=== PATIENT | male | born 1945 | race African-American/Black ===

== ENCOUNTER 2018-03-13 14:08 | Inpatient (IN) | payer MEDICARE, MEDICAID ==
[2018-03-13] MEDS ORDERED: Multivitamins, Adult 10 ML, Thiamine HCl 100 MG, Folic Acid 1 MG in Dextrose 5 %-0.45 %... IV SCH (14:45)
[2018-03-13 14:57] LABS: Troponin I 0.022 ng/mL (< 0.028)
[2018-03-13] MEDS ORDERED: Ondansetron ODT 4 MG TAB SL PRN (16:47)
[2018-03-13] MEDS ORDERED: Ondansetron HCl/PF 4 MG/2 ML Vial IVP PRN ×2 (16:47→17:13)
[2018-03-13] MEDS ORDERED: Acetaminophen 325 MG TAB PO PRN (17:13)
[2018-03-13] MEDS ORDERED: Ondansetron ODT 4 MG TAB PO PRN (17:13)
[2018-03-13] MEDS ORDERED: Enoxaparin Sodium 40 MG/0.4 ML SYRINGE SC SCH (17:13)
[2018-03-13] MEDS ORDERED: HYDROcodone/Acetaminophen 5/325 mg Tablet PO PRN ×2 (17:13)
[2018-03-13] MEDS ORDERED: Acetaminophen 650 MG Suppository PR PRN (17:13)
[2018-03-13] MEDS ORDERED: Diazepam 5 MG TAB PO PRN (17:51)
[2018-03-13] MEDS ORDERED: Diazepam 5 MG TAB PO SCH (18:00)
[2018-03-13] MEDS: Sodium Chloride 0.9% 1,000 ML IV SCH ×2 (18:09→23:58)
[2018-03-13] MEDS ORDERED: Sodium Chloride 0.9% 10 ML ONE (20:03)
[2018-03-13] MEDS: Labetalol 100 MG TAB PO SCH (21:15)
[2018-03-13] MEDS: Famotidine 20 MG TAB PO SCH (21:15)
[2018-03-13] MEDS: hydrALAZINE 25 MG TAB PO SCH (21:16)
[2018-03-14] MEDS: Sodium Chloride 0.9% 1,000 ML IV SCH ×3 (04:45→22:35)
[2018-03-14] MEDS ORDERED: cloNIDine 0.1 MG TAB PO SCH ×2 (04:45→23:45)
[2018-03-14] MEDS: Amlodipine 10 MG TAB PO SCH (08:28)
[2018-03-14] MEDS: Aspirin 325 MG TAB PO SCH (08:29)
[2018-03-14] MEDS: Enoxaparin Sodium 40 MG/0.4 ML SYRINGE SC SCH (08:29)
[2018-03-14] MEDS: hydrALAZINE 25 MG TAB PO SCH ×2 (08:30→20:30)
[2018-03-14] MEDS: Labetalol 100 MG TAB PO SCH ×3 (08:30→20:31)
[2018-03-14] MEDS: Famotidine 20 MG TAB PO SCH ×2 (08:30→20:32)
[2018-03-14] MEDS: Magnesium Oxide 400 MG TAB PO SCH (08:31)
[2018-03-14] MEDS: Multivitamins, Adult 10 ML, Folic Acid 1 MG, Thiamine HCl 100 MG in Dextrose 5 %-0.45 %... IV SCH (15:14)
[2018-03-14] MEDS: Diazepam 5 MG TAB PO PRN (20:31)
[2018-03-15] MEDS: Diazepam 5 MG TAB PO PRN (00:30)
[2018-03-15 05:29] LABS: #Eosinphils 0.1 thou/uL (0.0-0.7); #Lymphocytes 1.5 thou/uL (1.20-3.40); #Monocytes 0.3 thou/uL (0.11-0.59); #Neutrophils 2.3 thou/uL (1.40-6.50); %Basophils 1.1 % (0.0-1.0); %Eosinophils 2.2 % (0.0-10.0); %Lymphocytes 36.6 % (21.0-51.0); %Monocytes 6.4 % (0.0-10.0); %Neutrophils 53.6 % (42.0-75.0); Hemoglobin 13.9 g/dL (14.0-18.0); Mean Corpuscular HGB CONC 33.3 g/dL (32.0-36.0); Mean Corpuscular Hemoglobin 31.2 pg (27.0-31.0); Mean Corpuscular Volume 93.6 fL (78.0-98.0); Platelet Count 206 thou/uL (130-400); RBC Distribution Width 11.8 % (11.5-14.5); Red Blood Cell (RBC) Count 4.45 mill/uL (4.70-6.10); White Blood Cell (WBC) Count 4.2 thou/uL (4.8-10.8)
[2018-03-15 05:45] LABS: Anion Gap 11 mmol/L (10-20); BUN (Urea Nitrogen) 13 mg/dL (8.4-25.7); CK (CPK) 339 U/L (30-200); Calc. Creatinine Clearance 68 mL/min (70-130); Calcium 9.1 mg/dL (7.8-10.44); Carbon Dioxide 24 mmol/L (23-31); Chloride 110 mmol/L (98-107); Estimated GFR-MDRD Greater than 90; Glucose 93 mg/dL (83-110); Magnesium 2.1 mg/dL (1.6-2.6); Potassium 3.8 mmol/L (3.5-5.1); Sodium 141 mmol/L (136-145)
[2018-03-15] MEDS: Amlodipine 10 MG TAB PO SCH (08:28)
[2018-03-15] MEDS: Famotidine 20 MG TAB PO SCH ×2 (08:28→20:55)
[2018-03-15] MEDS: Labetalol 100 MG TAB PO SCH ×3 (08:28→20:55)
[2018-03-15] MEDS: hydrALAZINE 25 MG TAB PO SCH ×2 (08:29→20:55)
[2018-03-15] MEDS: Magnesium Oxide 400 MG TAB PO SCH (08:29)
[2018-03-15] MEDS: Enoxaparin Sodium 40 MG/0.4 ML SYRINGE SC SCH (08:30)
[2018-03-15] MEDS: Aspirin 325 MG TAB PO SCH (08:30)
[2018-03-15] MEDS: Sodium Chloride 0.9% 1,000 ML IV SCH (08:30)
--- NOTE | 2018-03-15 11:58 | PDOC.PN ---
- Subjective Encounter Start Date: 03/14/18 Encounter Start Time: 14:40 Pt more awake and coherent, denies CP or SOb, no N/V/D/C, no CP or SOB. refusing meds except pepcid, requesgting BID No other complaints or events, ASE has been zero all systems reviewed and neg x as above - Objective Resuscitation Status: Resuscitation Status FULL:Full Resuscitation MAR Reviewed: Yes Vital Signs & Weight: Vital Signs (12 hours) Temp Pulse Resp BP BP BP Pulse Ox 03/15/18 11:32 97.8 F 60 14 180/86 H 97 03/15/18 10:32 176/84 H 03/15/18 09:21 180/83 H 03/15/18 08:29 64 240/106 H 03/15/18 08:28 57 L 240/106 H 03/15/18 08:25 64 18 223/95 H 223/95 H 93 L 03/15/18 08:06 97.5 F L 57 L 16 240/106 H 90 L 03/15/18 06:46 176/82 H 03/15/18 06:34 98 F 03/15/18 04:00 53 L 16 176/82 H 96 03/15/18 01:25 65 16 168/84 H 03/15/18 00:00 191/92 H Weight Weight 146 lb 9.6 oz I&O: 03/14/18 03/15/18 03/16/18 06:59 06:59 06:59 Intake Total 2082 2738 Output Total 350 480 Balance 1732 2258 Result Diagrams: 03/15/18 05:15 03/15/18 05:15 Phys Exam - Physical Examination Constitutional: NAD HEENT: PERRLA, moist MMs, sclera anicteric, oral pharynx no lesions Neck: no nodes, no JVD, supple, full ROM Respiratory: no wheezing, clear to auscultation bilateral Cardiovascular: RRR, no rub Gastrointestinal: soft, non-tender, no distention, positive bowel sounds Musculoskeletal: edema present Neurological: non-focal, normal sensation, moves all 4 limbs Lymphatic: no nodes Psychiatric: normal affect Deviation from normal: alert, awake, oriented to person, place, year Skin: no rash, normal turgor, cap refill <2 seconds Dx/Plan (1) Acute metabolic encephalopathy Code(s): G93.41 - METABOLIC ENCEPHALOPATHY Status: Resolved Comment: pt possibly at baseline (2) Nonadherence to medical treatment Code(s): Z91.19 - PATIENT'S NONCOMPLIANCE W OTH MEDICAL TREATMENT AND REGIMEN Status: Chronic (3) Alcohol abuse Code(s): F10.10 - ALCOHOL ABUSE, UNCOMPLICATED Status: Chronic (4) Cocaine abuse Code(s): F14.10 - COCAINE ABUSE, UNCOMPLICATED Status: Chronic (5) Hypertensive urgency Code(s): I16.0 - HYPERTENSIVE URGENCY Status: Acute - Plan cont current plan of care, plan discussed w/ family, PT/OT, [employer]p [employer] and crm * . monitor for signs of withdrawl
--- NOTE | 2018-03-15 15:06 | HP ---
DATE OF ADMISSION: 03/13/2018 PRIMARY CARE PHYSICIAN: Catarina Díaz NP. TIME OF SERVICE: 1530. CHIEF COMPLAINT: Altered mental status. HISTORY OF PRESENT ILLNESS: Mr. Quiñones is a 72-year-old male with history of cocaine and alcohol abuse ongoing, hyperlipidemia, hypertension, and medical nonadherence. The patient lives in [place], [place]. He is normally intoxicated and walks around town on a regul ar basis. He . Sometimes not clothed very much at all. He normally stops by a particular laun dromat and comes in for a drink and was out for a walk on 03/13, the day of admission, and the people at work did noticed that he did not come in. They went inside to check on him and noticed he was luis n to the ground, minimally responsive, so EMS was called. He was soaked with urine and they were con cerned that he may have had a seizure. He was taken to the [facility] and transferred to our facility. On arrival here, workup was largely unremarkable. Alcohol level was detectable at , which has b christelle called for admission. Blood pressure elevated. On my arrival, his niece and brother were in the room. They said that the mental status currently is pretty standard for this patient. He often soi ls himself with urine or feces and is pretty much oblivious to everything going on around him. The patient states he has not had a drink in several days. He said that he has not used cocaine in a couple of weeks as he has not had the money. No chest pain or difficulty breathing. No nausea or v omiting. PAST MEDICAL HISTORY: 1. Hypertension. 2. Hyperlipidemia. 3. Polysubstance abuse with alcohol and cocaine. 4. Medical nonadherence. PAST SURGICAL HISTORY: Left eye cataract replacement, low back surgery remotely some 30 years ago. HOME MEDICATIONS: 1. Vitamin B12. 2. Labetalol. 3. Hydralazine. 4. Aspirin 325 mg. 5. Folic acid. 6. Amlodipine. 7. Lovastatin. His family does not think he is taking any of these medications. ALLERGIES: No known drug allergies. FAMILY HISTORY: Negative for clotting or bleeding disorder. No immune dysfunction. SOCIAL HISTORY: He lives alone. Obviously, he did not take care of himself. His son, Dany, who was in [place], his number is [phone]. The next of kin is his brother. He was seen at the scene and his brother's daughter/patient's niece, Ms. Falcon and her number is [phone]. REVIEW OF SYSTEMS: Performed and negative for all systems except as stated as per above. PHYSICAL EXAMINATION: VITAL SIGNS: Temperature current 98.5, pulse 57, blood pressure 186/84, respiratory rate 14, O2 satu ration 96% on room air. GENERAL: He is awake. He is alert. He is oriented to person and place. He is in no acute distress . He is a very disheveled looking male, who appears older than his stated age. HEENT: Normocephalic, atraumatic. Pupils equal, round and reactive to light bilaterally. Mucous me mbranes are moist. He has a left eye pseudophakia. NECK: Supple. There is no lymphadenopathy, JVD, or thyromegaly. He has normal carotid upstroke. I do not appreciate a bruit. LUNGS: Clear to auscultation anteriorly, but posteriorly, he has some bibasilar crackles that are ve ry fine, did not clear with deep inspiration. CARDIOVASCULAR: He has normal cardiac to slightly bradycardic. He has normal S1, S2. He has a 2/6 systolic ejection murmur in the left upper sternal border. ABDOMEN: Soft, it is scaphoid, it is nontender, nondistended, no mass or organomegaly. EXTREMITIES: No cyanosis or clubbing. Trace pedal edema. SKIN: Dry. He has no rashes or lesions noted. MUSCULOSKELETAL: Normal to inspection. Large joints appear normal. There is no evidence of inflamm ation or palpable effusion. NEUROLOGIC: Cranial nerves II through XII grossly intact. He has no tremors. He follows commands a nd is moving all 4 extremities, has no focal deficits. Speech is somewhat garbled and slurred, but t his is apparently is normal. LABORATORY DATA: Labs done at facility show white blood cell count of 5.1, hemoglobin 13.5, hematocr it of 40.4, platelet count is 208,000. Chemistries showed a CMP that was within normal limits. Crea tinine was 1.13. Sodium 143, potassium 3.9, chloride 110, bicarbonate 23, calcium 9.4. Liver functi on is normal. CK was slightly elevated at 490. Troponin I was 0.022. Ammonia level was normal at 3 6. Urinalysis showed 2+ bacteria, but 4-6 epithelial cells, no white cells and negative for nitrite and tox showed a plasma alcohol less than 10. Tylenol that was undetectable and salicylate that were negative. Alcohol level reported to me initialy being positive, being very undetectable. I cannot locate. The only level we have was at [facility], and it was undetectable. RADIOGRAPHIC STUDIES: He had CT scan of the brain that showed no acute intracranial abnormalities. Chest x-ray was unremarkable. ASSESSMENT AND PLAN: 1. Metabolic encephalopathy: The patient had some sort of events. He is negative for drugs and alc ohol at this time. Certainly could have been a seizure, but apparently the patient is normally incon tinent. We will place him on observation, we will watch him on telemetry with seizure precautions. We will initiate the ASE protocol. 2. Hypertension, uncontrolled. We will restart the medicines he is supposed to be on, amlodip ine, hydralazine, labetalol. We will titrate these as needed. 3. Polysubstance abuse. The patient is negative for alcohol, negative for cocaine or any other symp toms for that matter. We will watch him for signs of withdrawal. 4. Patient is very disheveled looking and apparently does not take care of himself, likely need to g et EPS involved.
[2018-03-15] MEDS: Multivitamins, Adult 10 ML, Folic Acid 1 MG, Thiamine HCl 100 MG in Dextrose 5 %-0.45 %... IV SCH (15:43)
--- NOTE | 2018-03-15 15:43 | PDOC.PN ---
- Subjective Encounter Start Date: 03/15/18 Encounter Start Time: 15:30 Patient says he feels fine. Feels like he is at his baseline. Does not feel shaky. - Objective Resuscitation Status: Resuscitation Status FULL:Full Resuscitation Vital Signs & Weight: Vital Signs (12 hours) Temp Pulse Pulse Pulse Resp BP BP 03/15/18 15:39 98 F 67 18 03/15/18 12:14 180/86 H 03/15/18 11:32 97.8 F 60 14 180/86 H 03/15/18 10:32 176/84 H 03/15/18 10:22 63 67 174/84 H 03/15/18 09:21 180/83 H 03/15/18 08:29 64 240/106 H 03/15/18 08:28 57 L 240/106 H 03/15/18 08:25 64 18 223/95 H 03/15/18 08:06 97.5 F L 57 L 16 240/106 H 03/15/18 06:46 176/82 H 03/15/18 06:34 98 F 03/15/18 04:00 53 L 16 BP BP Pulse Ox 03/15/18 15:39 185/87 H 97 03/15/18 12:14 03/15/18 11:32 97 03/15/18 10:32 03/15/18 10:22 176/84 H 03/15/18 09:21 03/15/18 08:29 03/15/18 08:28 03/15/18 08:25 223/95 H 93 L 03/15/18 08:06 90 L 03/15/18 06:46 03/15/18 06:34 03/15/18 04:00 176/82 H 96 Weight Weight 146 lb 9.6 oz I&O: 03/14/18 03/15/18 03/16/18 06:59 06:59 06:59 Intake Total 1332 2738 Output Total 350 480 Balance 1732 2258 Result Diagrams: 03/15/18 05:15 03/15/18 05:15 Phys Exam - Physical Examination Constitutional: NAD Respiratory: no wheezing, no rales, no rhonchi Cardiovascular: RRR, no significant murmur Gastrointestinal: soft, non-tender, no distention, positive bowel sounds Musculoskeletal: no edema Psychiatric: normal affect Deviation from normal: Not oriented. Believes he is in [place]. Dx/Plan (1) Nonadherence to medical treatment Code(s): Z91.19 - PATIENT'S NONCOMPLIANCE W OTH MEDICAL TREATMENT AND REGIMEN Status: Chronic (2) Acute metabolic encephalopathy Code(s): G93.41 - METABOLIC ENCEPHALOPATHY Status: Resolved Comment: pt possibly at baseline (3) Hypertensive urgency Code(s): I16.0 - HYPERTENSIVE URGENCY Status: Acute Comment: Imporved on several meds. Says he takes meds at home, but does not know what they are. (4) Alcohol abuse Code(s): F10.10 - ALCOHOL ABUSE, UNCOMPLICATED Status: Chronic (5) Cocaine abuse Code(s): F14.10 - COCAINE ABUSE, UNCOMPLICATED Status: Chronic (6) Altered mental status Code(s): R41.82 - ALTERED MENTAL STATUS, UNSPECIFIED Status: Resolved Comment: sec to substance alc abuse, adv age and htn urgency - Plan * Completely unclear what the patient's baseline mental status is. He looks tremulous and is not oriented. Will attempt to get some insight on his baseline from his brother. He may be disoriented at baseline given his history of substance abuse. Continue ASE protocol.
[2018-03-16] MEDS ORDERED: hydrALAZINE 20 MG/ML VIAL SLOW IVP PRN (00:28)
[2018-03-16] MEDS: Sodium Chloride 0.9% 1,000 ML IV SCH ×3 (03:03→16:37)
[2018-03-16] MEDS: Famotidine 20 MG TAB PO SCH ×2 (08:04→19:42)
[2018-03-16] MEDS: Aspirin 325 MG TAB PO SCH (08:04)
[2018-03-16] MEDS: Enoxaparin Sodium 40 MG/0.4 ML SYRINGE SC SCH (08:04)
[2018-03-16] MEDS: Labetalol 100 MG TAB PO SCH ×3 (08:04→19:42)
[2018-03-16] MEDS: Amlodipine 10 MG TAB PO SCH (08:04)
[2018-03-16] MEDS: hydrALAZINE 25 MG TAB PO SCH ×2 (08:05→19:42)
[2018-03-16] MEDS: Magnesium Oxide 400 MG TAB PO SCH (08:05)
--- NOTE | 2018-03-16 15:09 | PDOC.PN ---
- Subjective Encounter Start Date: 03/16/18 Encounter Start Time: 11:10 Says he feels ok. No complaints. - Objective Resuscitation Status: Resuscitation Status FULL:Full Resuscitation Vital Signs & Weight: Vital Signs (12 hours) Temp Pulse Resp BP BP Pulse Ox 03/16/18 12:00 97.6 F 67 18 155/73 H 155/73 H 95 03/16/18 08:05 73 03/16/18 08:04 73 200/91 H 03/16/18 08:00 96 03/16/18 07:33 98.8 F 73 18 200/91 H 200/91 H 96 03/16/18 04:00 179/96 H 03/16/18 03:30 98.4 F 90 18 179/96 H 97 Weight Weight 148 lb I&O: 03/15/18 03/16/18 03/17/18 06:59 06:59 06:59 Intake Total 2738 3100 Output Total 480 Balance 2258 3100 Result Diagrams: 03/15/18 05:15 03/15/18 05:15 Phys Exam - Physical Examination Constitutional: NAD Respiratory: no wheezing, no rales, no rhonchi, clear to auscultation bilateral Cardiovascular: RRR, no significant murmur Gastrointestinal: soft, non-tender, no distention, positive bowel sounds Musculoskeletal: no edema Disoriented to place and year. Dx/Plan (1) Nonadherence to medical treatment Code(s): Z91.19 - PATIENT'S NONCOMPLIANCE W OTH MEDICAL TREATMENT AND REGIMEN Status: Chronic (2) Acute metabolic encephalopathy Code(s): G93.41 - METABOLIC ENCEPHALOPATHY Status: Resolved Comment: Likely related to withdrawal or chronic brain injury secondary to substance abuse. Baseline is not clearly known. (3) Hypertensive urgency Code(s): I16.0 - HYPERTENSIVE URGENCY Status: Acute Comment: Imporved on several meds. Says he takes meds at home, but does not know what they are. (4) Alcohol abuse Code(s): F10.10 - ALCOHOL ABUSE, UNCOMPLICATED Status: Chronic (5) Cocaine abuse Code(s): F14.10 - COCAINE ABUSE, UNCOMPLICATED Status: Chronic (6) Altered mental status Code(s): R41.82 - ALTERED MENTAL STATUS, UNSPECIFIED Status: Resolved Comment: sec to substance alc abuse, adv age and htn urgency - Plan * Discussed with Pat, patient's son. He is here from [place]. Discussed the issues with substance abuse and withdrawal. May have some underlying dementia as well. At this point we need to wean off any benzodiazepines over the next day. He will need placement upon discharge. Anticipate a discharge day of .
[2018-03-16] MEDS: Multivitamins, Adult 10 ML, Folic Acid 1 MG, Thiamine HCl 100 MG in Dextrose 5 %-0.45 %... IV SCH (16:37)
[2018-03-17] MEDS: Sodium Chloride 0.9% 1,000 ML IV SCH ×2 (00:54→08:37)
[2018-03-17] MEDS: Famotidine 20 MG TAB PO SCH ×2 (08:34→19:31)
[2018-03-17] MEDS: Aspirin 325 MG TAB PO SCH (08:34)
[2018-03-17] MEDS: Enoxaparin Sodium 40 MG/0.4 ML SYRINGE SC SCH (08:34)
[2018-03-17] MEDS: Amlodipine 10 MG TAB PO SCH (08:34)
[2018-03-17] MEDS: Labetalol 100 MG TAB PO SCH ×3 (08:35→19:32)
[2018-03-17] MEDS: hydrALAZINE 25 MG TAB PO SCH ×2 (08:35→19:32)
[2018-03-17] MEDS: Magnesium Oxide 400 MG TAB PO SCH (08:36)
--- NOTE | 2018-03-17 12:03 | PDOC.PN ---
- Subjective Encounter Start Date: 03/17/18 Encounter Start Time: 10:55 Doing well. Got up to shower this morning and did well. Denies complaints. - Objective Resuscitation Status: Resuscitation Status FULL:Full Resuscitation Vital Signs & Weight: Vital Signs (12 hours) Temp Pulse Resp BP BP Pulse Ox 03/17/18 11:14 98 F 77 16 138/65 93 L 03/17/18 08:30 98.3 F 81 18 181/89 H 181/89 H 94 L 03/17/18 04:02 171/88 H 03/17/18 04:00 98.7 F 77 12 171/84 H 95 03/17/18 00:06 158/75 H Weight Weight 160 lb 12.8 oz I&O: 03/16/18 03/17/18 03/18/18 06:59 06:59 06:59 Intake Total 3100 3470 Balance 3100 3470 Result Diagrams: 03/15/18 05:15 03/15/18 05:15 Phys Exam - Physical Examination Constitutional: NAD Respiratory: no wheezing, no rales, no rhonchi, clear to auscultation bilateral Cardiovascular: RRR, no significant murmur Gastrointestinal: soft, non-tender, no distention, positive bowel sounds Musculoskeletal: no edema Deviation from normal: Still confused. A little sleepy. Dx/Plan (1) Nonadherence to medical treatment Code(s): Z91.19 - PATIENT'S NONCOMPLIANCE W OTH MEDICAL TREATMENT AND REGIMEN Status: Chronic (2) Acute metabolic encephalopathy Code(s): G93.41 - METABOLIC ENCEPHALOPATHY Status: Resolved Comment: Likely related to withdrawal or chronic brain injury secondary to substance abuse. Baseline is not clearly known. Suspect he is at his baseline with mild to moderate dementia. (3) Hypertensive urgency Code(s): I16.0 - HYPERTENSIVE URGENCY Status: Acute Comment: Imporved on several meds. (4) Alcohol abuse Code(s): F10.10 - ALCOHOL ABUSE, UNCOMPLICATED Status: Chronic (5) Cocaine abuse Code(s): F14.10 - COCAINE ABUSE, UNCOMPLICATED Status: Chronic (6) Altered mental status Code(s): R41.82 - ALTERED MENTAL STATUS, UNSPECIFIED Status: Resolved Comment: sec to substance alc abuse, adv age and htn urgency. This is likely his baseline. - Plan * Stopping the Diazepam. Does not look like he has been getting much of it. If ok without it, can discharge tomorrow. Working on placement.
[2018-03-17] MEDS: Multivitamins, Adult 10 ML, Folic Acid 1 MG, Thiamine HCl 100 MG in Dextrose 5 %-0.45 %... IV SCH (15:20)
--- NOTE | 2018-03-17 17:19 | CT ---
CT BRAIN WITHOUT CONTRAST 03/17/18 HISTORY: Fall. Patient on blood thinners. FINDINGS: Comparison made with exam of 03/13/18. 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 No evidence of acute infarct, hemorrhage, midline shift or abnorm al extra-axial fluid collections are seen. The ventricular size is stable and the basilar cisterns ar e patent. The bony calvarium is intact. The visualized paranasal sinuses and mastoid air cells are we ll aerated. Lipoma in the left frontal scalp is again seen. IMPRESSION: No CT evidence of intracranial process. Report was called over the telephone to Dr. Jake Hargrove at 4:54 p.m. POS: [facility]
[2018-03-17] MEDS ORDERED: Diazepam 5 MG TAB PO PRN (22:43)
[2018-03-18] MEDS: Sodium Chloride 0.9% 1,000 ML IV SCH ×3 (00:04→20:42)
[2018-03-18 05:58] LABS: #Eosinphils 0.1 thou/uL (0.0-0.7); #Monocytes 0.6 thou/uL (0.11-0.59); #Neutrophils 4.7 thou/uL (1.40-6.50); %Basophils 0.4 % (0.0-1.0); %Eosinophils 1.9 % (0.0-10.0); %Lymphocytes 15.9 % (21.0-51.0); %Monocytes 9.5 % (0.0-10.0); %Neutrophils 72.3 % (42.0-75.0); Hemoglobin 13.3 g/dL (14.0-18.0); Mean Corpuscular HGB CONC 33.4 g/dL (32.0-36.0); Mean Corpuscular Hemoglobin 30.9 pg (27.0-31.0); Mean Corpuscular Volume 92.4 fL (78.0-98.0); Mean Platelet Volume 8.4 fL (7.4-10.4); Platelet Count 195 thou/uL (130-400); Red Blood Cell (RBC) Count 4.32 mill/uL (4.70-6.10); White Blood Cell (WBC) Count 6.5 thou/uL (4.8-10.8)
[2018-03-18 06:24] LABS: Anion Gap 14 mmol/L (10-20); BUN (Urea Nitrogen) 39 mg/dL (8.4-25.7); Calc. Creatinine Clearance 12 mL/min (70-130); Calcium 8.6 mg/dL (7.8-10.44); Carbon Dioxide 17 mmol/L (23-31); Chloride 109 mmol/L (98-107); Estimated GFR-MDRD 11; Glucose 101 mg/dL (83-110); Potassium 4.1 mmol/L (3.5-5.1); Sodium 136 mmol/L (136-145)
[2018-03-18] MEDS: Amlodipine 10 MG TAB PO SCH (08:30)
[2018-03-18] MEDS: hydrALAZINE 25 MG TAB PO SCH ×2 (08:31→20:41)
[2018-03-18] MEDS: Famotidine 20 MG TAB PO SCH (08:31)
[2018-03-18] MEDS: Aspirin 325 MG TAB PO SCH (08:31)
[2018-03-18] MEDS: Enoxaparin Sodium 40 MG/0.4 ML SYRINGE SC SCH (08:31)
[2018-03-18] MEDS: Labetalol 100 MG TAB PO SCH ×3 (08:32→20:41)
[2018-03-18] MEDS: Magnesium Oxide 400 MG TAB PO SCH (08:33)
--- NOTE | 2018-03-18 12:08 | PRG ---
DATE OF SERVICE: 03/18/2018 SUBJECTIVE: The patient still says he feels okay. Denies complaint. OBJECTIVE: VITAL SIGNS: Temperature 97.3, pulse 67, BP 174/86, O2 sat 92% on room air. GENERAL APPEARANCE: The patient is a bit sleepy, awakens easily, still confused and a little encepha lopathic in appearance. HEART: Regular without murmurs. LUNGS: Clear bilaterally. ABDOMEN: Soft, nontender, nondistended. EXTREMITIES: Warm and dry. LABORATORY DATA: White count 6.5, hemoglobin 13.3, platelets 195,000. Sodium 136, potassium 4.1, ch loride 109, CO2 17, BUN is 39, creatinine 5.92. Updated hospital course from yesterday, the patient had an episode where he got out of bed yesterday and fell. He had a code green called. He was immediately assessed and appeared to be stable. Denie d any pain or problems. He had a followup CT scan of the brain, which was negative. The patient aditi arently was not having any voiding overnight and has a history of incontinence, using some diapers an d his ins and outs cannot be easily tracked. I did a bladder scan this morning and found he had over 1000 mL in the bladder. Had a Burt catheter placed. Labs this morning obviously indicate worsenin g renal function. IMPRESSION AND PLAN: 1. Metabolic encephalopathy. The patient initially presented with altered mental status. He has a history of alcoholism and drug abuse. It is unclear how much of that was a factor initially. At thi s point, concerning for possible mild uremia as well. His overall mental status has not significantl y changed since he has been here. 2. Acute renal failure. The patient was voiding, but was incontinent with a diaper. It is unclear what his ins and outs have been. However, this morning he had evidence of urine retention and a Fole y catheter placed with about 1500 mL of urine output at that time. His creatinine has remarkably jum ped just a few days since his last labs. I suspect he has some obstructive uropathy. We will leave the Burt catheter in and consult Nephrology. 3. History of alcoholism. The patient initially had some p.r.n. benzodiazepines, but did not requir e much and those have been fully discontinued at this point. 4. Hypertensive urgency, improved, still hypertensive. We will await Nephrology's input on that as well. 5. History of cocaine abuse. 6. Likely baseline dementia, although incapable of confirming because of the patient's acute metabol ic encephalopathy. 7. History of noncompliance with medical treatment regimen.
[2018-03-18] MEDS: Multivitamins, Adult 10 ML, Folic Acid 1 MG, Thiamine HCl 100 MG in Dextrose 5 %-0.45 %... IV SCH (15:09)
--- NOTE | 2018-03-18 17:58 | ULT ---
BILATERAL RENAL SONOGRAM: Date: 03/18/18 HISTORY: Chronic kidney disease. FINDINGS: Right kidney measures 11.2 cm x 5.6 cm. Left kidney measures 11.9 cm x 5.8 cm. There is an anechoic circumscribed cystic lesion seen within the medial aspect mid portion of the rig ht kidney demonstrating sonographic characteristics most compatible with a cyst, measuring 1.9 cm in maximal dimensions There is mild nonspecific fullness of the right renal pelvis without overt hydrone phrosis. The left kidney demonstrates a normal sonographic appearance without evidence of a renal mass, renal calculus, or hydronephrosis. Burt catheter is present in the urinary bladder, which is decompressed. However, valdivia of the urinar y bladder are predominantly thickened and more thickened than expected for decompressed nature of the urinary bladder. Valdivia measure up to 1.7 cm in thickness. Incidental note is made of a small right pleural effusion. IMPRESSION: 1. Thickened urinary bladder valdivia, which may be related to either cystitis or possibly chronic blad autumn outlet obstruction. Clinical correlation is recommended. 2. Right renal cyst. 3. No evidence of hydronephrosis or renal cortical thinning bilaterally. 4. Small left pleural effusion. POS: [facility]
--- NOTE | 2018-03-18 19:43 | CON ---
DATE OF CONSULTATION: 03/18/2018 REASON FOR CONSULTATION: Elevated creatinine. HISTORY OF PRESENT ILLNESS: This is a very pleasant 72-year-old gentleman who presented to the [facility] for altered mental status. The patient has a history of cocaine and alcohol abuse. The patient lives in [place] can give no further history. The patient had a creatinine of 0.91 on 03/15/2018 , increased to 5.92 today. The patient did have episodes of acute kidney injury in the past. PAST MEDICAL HISTORY: 1. Hypertension. 2. Hyperlipidemia. 3. Polysubstance abuse. 4. Cataract surgery. REVIEW OF SYSTEMS: Unobtainable. HOSPITAL MEDICATIONS: List reviewed. HOME MEDICATIONS: List reviewed. PHYSICAL EXAMINATION: GENERAL: Patient is resting, in no acute distress. VITAL SIGNS: Afebrile, pulse 72, breathing 16, blood pressure 130/62. GENERAL APPEARANCE AND MENTAL STATUS: Fair. HEAD/NECK: Normocephalic. Atraumatic. EYES: EOMI. No deformity. EARS: Clear. No ulcers. NOSE: Intact. No lesions. MOUTH: Clear. No discharge. THROAT: Clear. No exudate. LUNGS: Clear. No crackles. CARDIAC: S1, S2. No rub. ABDOMEN: Benign. BS+. GENITALIA/RECTUM: Burt absent. BACK/EXTREMITIES: Edema 0+ Ulcer- NEUROLOGICAL: The patient is resting. SKIN: Rash- Bruise- LYMPHATICS: Edema- Ulcer- LABORATORY: Potassium 4.1, creatinine 5.9. ASSESSMENT AND RECOMMENDATIONS: 1. Acute kidney injury, most likely because of acute tubular necrosis. No urgent indication for elida lysis. 2. Hypertension, stable. 3. Anemia, stable. 4. Medication based on glomerular filtration rate are appropriate. No indication for dialysis.
[2018-03-19 07:12] LABS: Anion Gap 10 mmol/L (10-20); BUN (Urea Nitrogen) 19 mg/dL (8.4-25.7); Calc. Creatinine Clearance 46 mL/min (70-130); Calcium 8.7 mg/dL (7.8-10.44); Carbon Dioxide 22 mmol/L (23-31); Chloride 112 mmol/L (98-107); Estimated GFR-MDRD 55; Glucose 90 mg/dL (83-110); Potassium 3.6 mmol/L (3.5-5.1); Sodium 140 mmol/L (136-145)
[2018-03-19] MEDS ORDERED: Senokot 8.6 MG TAB PO PRN (07:24)
[2018-03-19] MEDS ORDERED: Loratadine 10 MG TAB PO PRN (07:24)
[2018-03-19] MEDS ORDERED: Eucerin (Mineral Oil/Petrolatum,White) 30 gm Jar TOP PRN (07:24)
[2018-03-19] MEDS ORDERED: Calcium Carbonate 500 MG ChewTAB PO PRN (07:24)
[2018-03-19] MEDS ORDERED: Chloraseptic Spray 180 ml Bottle PO PRN (07:24)
[2018-03-19] MEDS ORDERED: Milk Of Magnesia 30 ML UDCUP PO PRN (07:24)
[2018-03-19] MEDS ORDERED: Temazepam 15 MG CAP PO PRN (07:24)
[2018-03-19] MEDS ORDERED: Loperamide HCl 2 MG CAP PO PRN (07:24)
[2018-03-19] MEDS ORDERED: Diabetic Tussin 200 MG/10 ML UDCUP PO PRN (07:24)
[2018-03-19] MEDS ORDERED: Artificial Tears 18 DROP/0.9 ML EA EYE PRN (07:24)
[2018-03-19] MEDS ORDERED: Sodium Chloride 0.65% Nasal 44 ML BOT EA NARE PRN (07:24)
[2018-03-19 07:56] LABS: ALT (SGPT) 9 U/L (8-55); AST (SGOT) 17 U/L (5-34); Albumin 3.1 g/dL (3.4-4.8); Alkaline Phosphatase 56 U/L (40-150); Bilirubin, Direct 0.2 mg/dL (0.1-0.3); Bilirubin, Total 0.6 mg/dL (0.2-1.2); Magnesium 1.6 mg/dL (1.6-2.6); Phosphorus 3.7 mg/dL (2.3-4.7); Protein, Total 5.8 g/dL (5.8-8.1)
[2018-03-19] MEDS: Famotidine 20 MG TAB PO SCH (08:36)
[2018-03-19] MEDS: Aspirin 325 MG TAB PO SCH (08:36)
[2018-03-19] MEDS: hydrALAZINE 25 MG TAB PO SCH ×2 (08:36→21:19)
[2018-03-19] MEDS: Amlodipine 10 MG TAB PO SCH (08:36)
[2018-03-19] MEDS: Magnesium Oxide 400 MG TAB PO SCH (08:36)
[2018-03-19] MEDS: Labetalol 100 MG TAB PO SCH ×3 (08:37→21:23)
[2018-03-19] MEDS: Enoxaparin Sodium 30 MG/0.3 ML SYRINGE SC SCH (08:37)
[2018-03-19] MEDS: Sodium Chloride 0.9% 1,000 ML IV SCH ×3 (08:38→22:07)
--- NOTE | 2018-03-19 11:02 | PRG ---
DATE OF SERVICE: 03/19/2018 SUBJECTIVE: This is a 72-year-old gentleman being seen for acute kidney injury, improving creatinine . PHYSICAL EXAMINATION: GENERAL: The patient is more awake. On examination, patient is alert. VITAL SIGNS: Afebrile, pulse 72, breathing 16, blood pressure 178/80. OBJECTIVE: See above. Awake, alert, in no acute distress. GENERAL APPEARANCE AND MENTAL STATUS: Fair. HEAD/NECK: Normocephalic. Atraumatic. EYES: EOMI. No deformity. EARS: Clear. No ulcers. NOSE: Intact. No lesions. MOUTH: Clear. No discharge. THROAT: Clear. No exudate. LUNGS: Clear. No crackles. CARDIAC: S1, S2. No rub. ABDOMEN: Benign. BS+. GENITALIA/RECTUM: Burt absent. BACK/EXTREMITIES: Edema 0+ Ulcer- NEUROLOGICAL: Alert and motor intact. SKIN: Rash- Bruise- LYMPHATICS: Edema- Ulcer- LABORATORY: Hemoglobin 13.3, creatinine 1.5. ASSESSMENT AND RECOMMENDATIONS: 1. Acute kidney injury, improved. 2. Edema, improved. 3. Hypertension, stable. 4. Anemia, stable. No indication for dialysis. The patient's renal ultrasound shows a renal cyst and thickened bladder wall. Would recommend Urolog y consultation.
[2018-03-19 11:45] LABS: Bilirubin Negative (Negative); Blood, Urine Negative (Negative); Clarity CLEAR (Clear); Glucose, Urine (Dipstick) Negative (Negative); Leukocyte Negative (Negative); Nitrite Negative (Negative); Protein, Urine (Dipstick) 30 mg/dL (Neg-Trace); Specific Gravity, Urine 1.012 (1.002-1.036); Urobilinogen 0.2 mg/dL (0.2-1.0); pH, Urine 5.5 (5.0-9.0)
[2018-03-19 11:47] LABS: Bacteria/HPF None Seen HPF (None Seen); Hyaline Casts/LPF 4-6 HYALINE CAST LPF (0-3 Hyaline); Pathc Cast-AUWi Flag 1.16 (0-2.49); Squamous Epithelial 0-3 HPF (0-3)
[2018-03-19 11:51] LABS: RBC/HPF None Seen HPF (0-3)
--- NOTE | 2018-03-19 13:14 | PDOC.PN ---
- Subjective Encounter Start Date: 03/19/18 Encounter Start Time: 07:45 -: old records requested/rev Patient seen and examined. No new complaints. No overnight events pt has sitter bedside - Objective Resuscitation Status: Resuscitation Status FULL:Full Resuscitation MAR Reviewed: Yes Vital Signs & Weight: Vital Signs (12 hours) Temp Pulse Resp BP BP Pulse Ox 03/19/18 11:35 98.0 F 64 17 160/73 H 95 03/19/18 08:37 71 178/83 H 03/19/18 08:36 71 178/83 H 03/19/18 07:43 94 L 03/19/18 07:40 98.3 F 71 178/83 H 178/83 H 94 L 03/19/18 05:01 98.1 F 71 172/79 H 172/79 H 93 L Weight Weight 162 lb 3.2 oz I&O: 03/18/18 03/19/18 03/20/18 06:59 06:59 06:59 Intake Total 4000 3097 Output Total 1500 6250 Balance 2500 -3153 Result Diagrams: 03/18/18 05:41 03/19/18 05:38 Radiology Reviewed by me: Yes (renal us and CT brain reviewed) EKG Reviewed by me: Yes Phys Exam - Physical Examination Constitutional: NAD HEENT: PERRLA, moist MMs, sclera anicteric Neck: no JVD, supple Respiratory: no wheezing, no rales, no rhonchi Cardiovascular: RRR, no significant murmur, no rub Gastrointestinal: soft, non-tender, no distention, positive bowel sounds walker+ Musculoskeletal: no edema, pulses present Neurological: non-focal, normal sensation, moves all 4 limbs Lymphatic: no nodes Psychiatric: normal affect Skin: no rash, normal turgor Dx/Plan (1) Acute kidney failure Status: Acute (2) Acute urinary retention Code(s): R33.8 - OTHER RETENTION OF URINE Status: Acute (3) Hypertensive urgency Code(s): I16.0 - HYPERTENSIVE URGENCY Status: Acute Comment: (4) Alcohol abuse Code(s): F10.10 - ALCOHOL ABUSE, UNCOMPLICATED Status: Chronic (5) H/O cocaine abuse Code(s): Z87.898 - PERSONAL HISTORY OF OTHER SPECIFIED CONDITIONS Status: Chronic (6) Nonadherence to medical treatment Code(s): Z91.19 - PATIENT'S NONCOMPLIANCE W OTH MEDICAL TREATMENT AND REGIMEN Status: Chronic (7) Acute metabolic encephalopathy Code(s): G93.41 - METABOLIC ENCEPHALOPATHY Status: Resolved Comment: - Plan cont current plan of care * continue IVF and MVI * renal function improving * watch for safety to prevent fall * medication reviewed as below * symptomatic treatment as below * repeat labs tomorrow * continue PT. * he will need walker on discharge Review of Systems - Review of Systems ENT: negative: Ear Pain, Ear Discharge, Nose Pain, Nose Discharge, Nose Congestion, Mouth Pain, Mouth Swelling, Throat Pain, Throat Swelling, Other Respiratory: negative: Cough, Dry, Shortness of Breath, Hemoptysis, SOB with Excertion, Pleuritic Pain, Sputum, Wheezing Cardiovascular: negative: chest pain, palpitations, orthopnea, paroxysmal nocturnal dyspnea, edema, light headedness, other Gastrointestinal: negative: Nausea, Vomiting, Abdominal Pain, Diarrhea, Constipation, Melena, Hematochezia, Other Genitourinary: negative: Dysuria, Frequency, Incontinence, Hematuria, Retention , Other Musculoskeletal: negative: Neck Pain, Shoulder Pain, Arm Pain, Back Pain, Hand Pain, Leg Pain, Foot Pain, Other - Medications/Allergies Allergies/Adverse Reactions: Allergies Allergy/AdvReac Type Severity Reaction Status Date / Time No Known Allergies Allergy Verified 09/09/16 19:10 Medications: Current Medications Acetaminophen (Tylenol) 650 mg PO Q4H PRN PRN Reason: Headache/Fever or Pain Hydrocodone Bitart/Acetaminophen ([place] 5/325) 1 tab PO Q4H PRN PRN Reason: Moderate Pain (4-6) Hydrocodone Bitart/Acetaminophen ([place] 5/325) 2 tab PO Q4H PRN PRN Reason: Severe Pain (7-10) Amlodipine Besylate (Norvasc) 10 mg PO DAILY [facility] Last Admin: 03/19/18 08:36 Dose: 10 mg Artificial Tears (Tears Naturale) 0 drop EA EYE PRN PRN PRN Reason: Dry Eyes Aspirin (Aspirin) 325 mg PO DAILY [facility] Last Admin: 03/19/18 08:36 Dose: 325 mg Calcium Carbonate (Tums) 1,000 mg PO Q4H PRN PRN Reason: Heartburn or Indigestion Diazepam (Valium) 5 mg PO Q8H PRN PRN Reason: Anxiety/Agitation Last Admin: 03/17/18 22:53 Dose: 5 mg Enoxaparin Sodium (Lovenox) 30 mg SC 899 [facility] Last Admin: 03/19/18 08:37 Dose: 30 mg Famotidine (Pepcid) 20 mg PO 09 [facility] Last Admin: 03/19/18 08:36 Dose: 20 mg Guaifenesin (Robitussin Sf) 200 mg PO Q4H PRN PRN Reason: Cough Hydralazine HCl (Apresoline) 25 mg PO BID [facility] Last Admin: 03/19/18 08:36 Dose: 25 mg Hydralazine HCl (Apresoline) 10 mg SLOW IVP Q6H PRN PRN Reason: SBP > 180 Last Admin: 03/16/18 00:49 Dose: 10 mg Multivitamins 10 ml/ Folic Acid 1 mg/ Thiamine HCl 100 mg / Dextrose/Sodium Chloride 1,011.2 mls @ 150 mls/hr IV 1500 [facility] Last Admin: 03/18/18 15:09 Dose: 1,011.2 mls Sodium Chloride (Normal Saline 0.9%) 1,000 mls @ 100 mls/hr IV .Q10H [facility] Last Admin: 03/19/18 08:38 Dose: 1,000 mls Labetalol HCl (Normodyne) 50 mg PO TID [facility] Last Admin: 03/19/18 08:37 Dose: 50 mg Loperamide HCl (Imodium) 2 mg PO PRN PRN PRN Reason: Diarrhea/Loose Stools Loratadine (Claritin) 10 mg PO DAILYPRN PRN PRN Reason: Sinus Symptoms Magnesium Hydroxide (Milk Of Magnesium) 30 ml PO DAILYPRN PRN PRN Reason: Constipation Magnesium Oxide (Magnesium Oxide) 400 mg PO DAILY [facility] Last Admin: 03/19/18 08:36 Dose: 400 mg Mineral Oil/White Petrolatum (Eucerin Cream) 0 gm TOP BIDPRN PRN PRN Reason: Dry Skin Ondansetron HCl (Zofran Odt) 4 mg PO Q6H PRN PRN Reason: Nausea/Vomiting Ondansetron HCl (Zofran) 4 mg IVP Q6H PRN PRN Reason: Nausea/Vomiting Phenol (Chloraseptic [place] 180 Ml Bot) 0 ml PO PRN PRN PRN Reason: Sore Throat Senna (Senokot) 2 tab PO HSPRN PRN PRN Reason: Constipation Sodium Chloride (Flush - Normal Saline) 10 ml IVF Q12HR [place] Last Admin: 03/19/18 08:37 Dose: Not Given Sodium Chloride (Flush - Normal Saline) 10 ml IVF PRN PRN PRN Reason: Saline Flush Last Admin: 03/14/18 22:38 Dose: 10 ml Sodium Chloride ([place] Nasal [place] 0.65%) 0 ml EA NARE QIDPRN PRN PRN Reason: Nasal Congestion Temazepam (Restoril) 15 mg PO HSPRN PRN PRN Reason: Insomnia
[2018-03-19] MEDS: Multivitamins, Adult 10 ML, Folic Acid 1 MG, Thiamine HCl 100 MG in Dextrose 5 %-0.45 %... IV SCH (15:21)
[2018-03-20 06:12] LABS: Anion Gap 8 mmol/L (10-20); BUN (Urea Nitrogen) 14 mg/dL (8.4-25.7); Calc. Creatinine Clearance 69 mL/min (70-130); Calcium 8.9 mg/dL (7.8-10.44); Carbon Dioxide 26 mmol/L (23-31); Chloride 110 mmol/L (98-107); Estimated GFR-MDRD Greater than 90; Glucose 92 mg/dL (83-110); Potassium 3.7 mmol/L (3.5-5.1); Sodium 140 mmol/L (136-145)
[2018-03-20] MEDS: Labetalol 100 MG TAB PO SCH ×3 (08:56→21:09)
[2018-03-20] MEDS: Aspirin 325 MG TAB PO SCH (08:56)
[2018-03-20] MEDS: Tamsulosin HCl 0.4 MG CAP PO SCH ×2 (08:57→21:10)
[2018-03-20] MEDS: Magnesium Oxide 400 MG TAB PO SCH (08:57)
[2018-03-20] MEDS: Amlodipine 10 MG TAB PO SCH (08:57)
[2018-03-20] MEDS: hydrALAZINE 25 MG TAB PO SCH ×2 (08:57→21:09)
[2018-03-20] MEDS: Famotidine 20 MG TAB PO SCH (08:57)
[2018-03-20] MEDS: Enoxaparin Sodium 30 MG/0.3 ML SYRINGE SC SCH (08:58)
--- NOTE | 2018-03-20 09:55 | PDOC.PN ---
- Subjective Encounter Start Date: 03/20/18 Encounter Start Time: 07:10 Patient seen and examined. No new complaints. No overnight events pt has bedside sitter - Objective Resuscitation Status: Resuscitation Status FULL:Full Resuscitation MAR Reviewed: Yes Vital Signs & Weight: Vital Signs (12 hours) Temp Pulse Resp BP BP Pulse Ox 03/20/18 08:54 98.1 F 84 18 141/64 H 94 L 03/20/18 04:00 97.0 F L 69 20 156/71 H 96 03/20/18 00:00 163/72 H 03/19/18 23:20 98.2 F 70 20 163/72 H 93 L Weight Weight 157 lb I&O: 03/19/18 03/20/18 03/21/18 06:59 06:59 06:59 Intake Total 3097 3200 Output Total 6250 4000 Balance -3153 -800 Result Diagrams: 03/18/18 05:41 03/20/18 05:14 EKG Reviewed by me: Yes Phys Exam - Physical Examination Constitutional: NAD HEENT: PERRLA, moist MMs, sclera anicteric Neck: no JVD, supple Respiratory: no wheezing, no rales, no rhonchi Cardiovascular: RRR, no significant murmur, no rub Gastrointestinal: soft, non-tender, no distention, positive bowel sounds walker+ Musculoskeletal: no edema, pulses present Neurological: non-focal, moves all 4 limbs Lymphatic: no nodes Psychiatric: normal affect Skin: no rash, normal turgor Dx/Plan (1) Acute kidney failure Status: Acute (2) Acute urinary retention Code(s): R33.8 - OTHER RETENTION OF URINE Status: Acute (3) Hypertensive urgency Code(s): I16.0 - HYPERTENSIVE URGENCY Status: Acute Comment: (4) Alcohol abuse Code(s): F10.10 - ALCOHOL ABUSE, UNCOMPLICATED Status: Chronic (5) H/O cocaine abuse Code(s): Z87.898 - PERSONAL HISTORY OF OTHER SPECIFIED CONDITIONS Status: Chronic (6) Nonadherence to medical treatment Code(s): Z91.19 - PATIENT'S NONCOMPLIANCE W OTH MEDICAL TREATMENT AND REGIMEN Status: Chronic (7) Acute metabolic encephalopathy Code(s): G93.41 - METABOLIC ENCEPHALOPATHY Status: Resolved Comment: - Plan cont current plan of care, PT/OT, social work job titles * add folic acid, thiamin, B12 * DC IVF * add flomax bid * medication reviewed as below * symptomatic treatment * expecting discharge soon. Review of Systems - Review of Systems ENT: negative: Ear Pain, Ear Discharge, Nose Pain, Nose Discharge, Nose Congestion, Mouth Pain, Mouth Swelling, Throat Pain, Throat Swelling, Other Respiratory: negative: Cough, Dry, Shortness of Breath, Hemoptysis, SOB with Excertion, Pleuritic Pain, Sputum, Wheezing Cardiovascular: negative: chest pain, palpitations, orthopnea, paroxysmal nocturnal dyspnea, edema, light headedness, other Gastrointestinal: negative: Nausea, Vomiting, Abdominal Pain, Diarrhea, Constipation, Melena, Hematochezia, Other Genitourinary: negative: Dysuria, Frequency, Incontinence, Hematuria, Retention , Other Musculoskeletal: negative: Neck Pain, Shoulder Pain, Arm Pain, Back Pain, Hand Pain, Leg Pain, Foot Pain, Other Other: not reliable with pt due to his level of cognitive status - Medications/Allergies Allergies/Adverse Reactions: Allergies Allergy/AdvReac Type Severity Reaction Status Date / Time No Known Allergies Allergy Verified 09/09/16 19:10 Medications: Current Medications Acetaminophen (Tylenol) 650 mg PO Q4H PRN PRN Reason: Headache/Fever or Pain Last Admin: 03/20/18 08:57 Dose: 650 mg Hydrocodone Bitart/Acetaminophen ([place] 5/325) 1 tab PO Q4H PRN PRN Reason: Moderate Pain (4-6) Hydrocodone Bitart/Acetaminophen ([place] 5/325) 2 tab PO Q4H PRN PRN Reason: Severe Pain (7-10) Amlodipine Besylate (Norvasc) 10 mg PO DAILY [facility] Last Admin: 03/20/18 08:57 Dose: 10 mg Artificial Tears (Tears Naturale) 0 drop EA EYE PRN PRN PRN Reason: Dry Eyes Aspirin (Aspirin) 325 mg PO DAILY [facility] Last Admin: 03/20/18 08:56 Dose: 325 mg Calcium Carbonate (Tums) 1,000 mg PO Q4H PRN PRN Reason: Heartburn or Indigestion Diazepam (Valium) 5 mg PO Q8H PRN PRN Reason: Anxiety/Agitation Last Admin: 03/17/18 22:53 Dose: 5 mg Enoxaparin Sodium (Lovenox) 30 mg SC 0900 [facility] Last Admin: 03/20/18 08:58 Dose: 30 mg Famotidine (Pepcid) 20 mg PO 09 [facility] Last Admin: 03/20/18 08:57 Dose: 20 mg Guaifenesin (Robitussin Sf) 200 mg PO Q4H PRN PRN Reason: Cough Hydralazine HCl (Apresoline) 25 mg PO BID [facility] Last Admin: 03/20/18 08:57 Dose: 25 mg Hydralazine HCl (Apresoline) 10 mg SLOW IVP Q6H PRN PRN Reason: SBP > 180 Last Admin: 03/16/18 00:49 Dose: 10 mg Multivitamins 10 ml/ Folic Acid 1 mg/ Thiamine HCl 100 mg / Dextrose/Sodium Chloride 1,011.2 mls @ 150 mls/hr IV 1500 [facility] Last Admin: 03/19/18 15:21 Dose: 1,011.2 mls Sodium Chloride (Normal Saline 0.9%) 1,000 mls @ 100 mls/hr IV .Q10H [facility] Last Admin: 03/19/18 22:07 Dose: 1,000 mls Labetalol HCl (Normodyne) 50 mg PO TID [facility] Last Admin: 03/20/18 08:56 Dose: 50 mg Loperamide HCl (Imodium) 2 mg PO PRN PRN PRN Reason: Diarrhea/Loose Stools Loratadine (Claritin) 10 mg PO DAILYPRN PRN PRN Reason: Sinus Symptoms Magnesium Hydroxide (Milk Of Magnesium) 30 ml PO DAILYPRN PRN PRN Reason: Constipation Magnesium Oxide (Magnesium Oxide) 400 mg PO DAILY [facility] Last Admin: 03/20/18 08:57 Dose: 400 mg Mineral Oil/White Petrolatum (Eucerin Cream) 0 gm TOP BIDPRN PRN PRN Reason: Dry Skin Ondansetron HCl (Zofran Odt) 4 mg PO Q6H PRN PRN Reason: Nausea/Vomiting Ondansetron HCl (Zofran) 4 mg IVP Q6H PRN PRN Reason: Nausea/Vomiting Phenol (Chloraseptic [place] 180 Ml Bot) 0 ml PO PRN PRN PRN Reason: Sore Throat Senna (Senokot) 2 tab PO HSPRN PRN PRN Reason: Constipation Sodium Chloride (Flush - Normal Saline) 10 ml IVF Q12HR [facility] Last Admin: 03/20/18 08:57 Dose: 10 ml Sodium Chloride (Flush - Normal Saline) 10 ml IVF PRN PRN PRN Reason: Saline Flush Last Admin: 03/14/18 22:38 Dose: 10 ml Sodium Chloride ([place] Nasal [place] 0.65%) 0 ml EA NARE QIDPRN PRN PRN Reason: Nasal Congestion Tamsulosin HCl (Flomax) 0.4 mg PO BID [facility] Last Admin: 03/20/18 08:57 Dose: 0.4 mg Temazepam (Restoril) 15 mg PO HSPRN PRN PRN Reason: Insomnia
--- NOTE | 2018-03-20 11:05 | PRG ---
DATE OF SERVICE: 03/20/2018 SUBJECTIVE: A 72-year-old gentleman being seen for end-stage renal disease. The patient denies any nausea, vomiting, or chest pain. PHYSICAL EXAMINATION: GENERAL: Awake, alert. VITAL SIGNS: Afebrile, pulse 81, breathing 16, blood pressure 141/64. HEAD/NECK: Normocephalic. Atraumatic. EYES: EOMI. No deformity. EARS: Clear. No ulcers. NOSE: Intact. No lesions. MOUTH: Clear. No discharge. THROAT: Clear. No exudate. LUNGS: Clear. No crackles. CARDIAC: S1, S2. No rub. ABDOMEN: Benign. BS+. GENITALIA/RECTUM: Burt absent. BACK/EXTREMITIES: Edema 0+ Ulcer- NEUROLOGICAL: Alert and motor intact. SKIN: Rash- Bruise- LYMPHATICS: Edema- Ulcer- LABORATORY DATA: Show hemoglobin 13.3, creatinine 0.97. ASSESSMENT AND RECOMMENDATIONS: 1. Acute kidney injury, improved. 2. Hypertension, improved. 3. Metabolic acidosis, improved. I will sign off on this patient. Please reconsult as needed.
[2018-03-21 06:08] LABS: Anion Gap 10 mmol/L (10-20); BUN (Urea Nitrogen) 11 mg/dL (8.4-25.7); Calc. Creatinine Clearance 73 mL/min (70-130); Carbon Dioxide 27 mmol/L (23-31); Chloride 106 mmol/L (98-107); Estimated GFR-MDRD Greater than 90; Glucose 93 mg/dL (83-110); Potassium 3.4 mmol/L (3.5-5.1); Sodium 140 mmol/L (136-145)
[2018-03-21] MEDS ORDERED: Potassium Chloride 20 MEQ TAB PO SCH (08:00)
[2018-03-21] MEDS: Tamsulosin HCl 0.4 MG CAP PO SCH ×2 (09:07→20:45)
[2018-03-21] MEDS: Folic Acid 1 MG TAB PO SCH (09:07)
[2018-03-21] MEDS: Aspirin 325 MG TAB PO SCH (09:07)
[2018-03-21] MEDS: Amlodipine 10 MG TAB PO SCH (09:08)
[2018-03-21] MEDS: Cyanocobalamin (Vitamin B-12) 1,000 MCG TAB PO SCH (09:08)
[2018-03-21] MEDS: Magnesium Oxide 400 MG TAB PO SCH (09:08)
[2018-03-21] MEDS: hydrALAZINE 25 MG TAB PO SCH ×2 (09:08→20:46)
[2018-03-21] MEDS: Famotidine 20 MG TAB PO SCH (09:08)
[2018-03-21] MEDS: Labetalol 100 MG TAB PO SCH ×3 (09:09→20:45)
--- NOTE | 2018-03-21 09:54 | PDOC.PN ---
- Subjective Encounter Start Date: 03/21/18 Encounter Start Time: 07:40 pt pulled out his walker catheter, has mild penile bleeding, for now he has not gross hematuria - Objective Resuscitation Status: Resuscitation Status FULL:Full Resuscitation MAR Reviewed: Yes Vital Signs & Weight: Vital Signs (12 hours) Temp Pulse Resp BP Pulse Ox 03/21/18 07:58 99.4 F 85 16 168/79 H 94 L 03/21/18 04:00 97.5 F L 68 16 177/80 H 95 03/20/18 23:21 98.6 F 69 12 163/74 H 93 L Weight Weight 156 lb 1.6 oz I&O: 03/20/18 03/21/18 03/22/18 06:59 06:59 06:59 Intake Total 3200 1804 Output Total 4000 4555 Balance -143 -0502 Result Diagrams: 03/18/18 05:41 03/21/18 05:16 Phys Exam - Physical Examination Constitutional: NAD HEENT: PERRLA, moist MMs, sclera anicteric Neck: no JVD, supple Respiratory: no wheezing, no rales, no rhonchi Cardiovascular: RRR, no significant murmur, no rub Gastrointestinal: soft, non-tender, no distention, positive bowel sounds walker+ Musculoskeletal: no edema, pulses present Neurological: non-focal, normal sensation Psychiatric: normal affect Skin: no rash, normal turgor Dx/Plan (1) Acute kidney failure Status: Acute (2) Acute urinary retention Code(s): R33.8 - OTHER RETENTION OF URINE Status: Acute (3) Hypertensive urgency Code(s): I16.0 - HYPERTENSIVE URGENCY Status: Acute Comment: (4) Alcohol abuse Code(s): F10.10 - ALCOHOL ABUSE, UNCOMPLICATED Status: Chronic (5) H/O cocaine abuse Code(s): Z87.898 - PERSONAL HISTORY OF OTHER SPECIFIED CONDITIONS Status: Chronic (6) Nonadherence to medical treatment Code(s): Z91.19 - PATIENT'S NONCOMPLIANCE W OTH MEDICAL TREATMENT AND REGIMEN Status: Chronic (7) Acute metabolic encephalopathy Code(s): G93.41 - METABOLIC ENCEPHALOPATHY Status: Resolved Comment: (8) Hypokalemia Code(s): E87.6 - HYPOKALEMIA Status: Acute - Plan cont current plan of care * replace potassium * as he is at risk to let him go with walker, will try bladder training today and will do voiding trial one time in hospital, if unsuccessful then will let hime go with walker * continue flomax * medication reviewed as below * symptomatic treatment * expecting discharge to [facility] tomorrow. * may dc tele and transfer to medical if needed * sitter bedside for safety Review of Systems - Review of Systems ENT: negative: Ear Pain, Ear Discharge, Nose Pain, Nose Discharge, Nose Congestion, Mouth Pain, Mouth Swelling, Throat Pain, Throat Swelling, Other Respiratory: negative: Cough, Dry, Shortness of Breath, Hemoptysis, SOB with Excertion, Pleuritic Pain, Sputum, Wheezing Cardiovascular: negative: chest pain, palpitations, orthopnea, paroxysmal nocturnal dyspnea, edema, light headedness, other Gastrointestinal: negative: Nausea, Vomiting, Abdominal Pain, Diarrhea, Constipation, Melena, Hematochezia, Other Genitourinary: negative: Dysuria, Frequency, Incontinence, Hematuria, Retention , Other Musculoskeletal: negative: Neck Pain, Shoulder Pain, Arm Pain, Back Pain, Hand Pain, Leg Pain, Foot Pain, Other Other: not reliable due to his level of cognitive status - Medications/Allergies Allergies/Adverse Reactions: Allergies Allergy/AdvReac Type Severity Reaction Status Date / Time No Known Allergies Allergy Verified 09/09/16 19:10 Medications: Current Medications Acetaminophen (Tylenol) 650 mg PO Q4H PRN PRN Reason: Headache/Fever or Pain Last Admin: 03/20/18 08:57 Dose: 650 mg Hydrocodone Bitart/Acetaminophen ([place] 5/325) 1 tab PO Q4H PRN PRN Reason: Moderate Pain (4-6) Hydrocodone Bitart/Acetaminophen ([place] 5/325) 2 tab PO Q4H PRN PRN Reason: Severe Pain (7-10) Amlodipine Besylate (Norvasc) 10 mg PO DAILY [facility] Last Admin: 03/21/18 09:08 Dose: 10 mg Artificial Tears (Tears Naturale) 0 drop EA EYE PRN PRN PRN Reason: Dry Eyes Aspirin (Aspirin) 325 mg PO DAILY [facility] Last Admin: 03/21/18 09:07 Dose: 325 mg Calcium Carbonate (Tums) 1,000 mg PO Q4H PRN PRN Reason: Heartburn or Indigestion Cyanocobalamin (Vitamin B-12) 1,000 mcg PO DAILY [facility] Last Admin: 03/21/18 09:08 Dose: 1,000 mcg Diazepam (Valium) 5 mg PO Q8H PRN PRN Reason: Anxiety/Agitation Last Admin: 03/17/18 22:53 Dose: 5 mg Enoxaparin Sodium (Lovenox) 30 mg SC 09 [facility] Last Admin: 03/20/18 08:58 Dose: 30 mg Famotidine (Pepcid) 20 mg PO 09 [facility] Last Admin: 03/21/18 09:08 Dose: 20 mg Folic Acid (Folvite) 1 mg PO DAILY [facility] Last Admin: 03/21/18 09:07 Dose: 1 mg Guaifenesin (Robitussin Sf) 200 mg PO Q4H PRN PRN Reason: Cough Hydralazine HCl (Apresoline) 25 mg PO BID [facility] Last Admin: 03/21/18 09:08 Dose: 25 mg Hydralazine HCl (Apresoline) 10 mg SLOW IVP Q6H PRN PRN Reason: SBP > 180 Last Admin: 03/16/18 00:49 Dose: 10 mg Labetalol HCl (Normodyne) 50 mg PO TID [facility] Last Admin: 03/21/18 09:09 Dose: 50 mg Loperamide HCl (Imodium) 2 mg PO PRN PRN PRN Reason: Diarrhea/Loose Stools Loratadine (Claritin) 10 mg PO DAILYPRN PRN PRN Reason: Sinus Symptoms Magnesium Hydroxide (Milk Of Magnesium) 30 ml PO DAILYPRN PRN PRN Reason: Constipation Magnesium Oxide (Magnesium Oxide) 400 mg PO DAILY [facility] Last Admin: 03/21/18 09:08 Dose: 400 mg Mineral Oil/White Petrolatum (Eucerin Cream) 0 gm TOP BIDPRN PRN PRN Reason: Dry Skin Ondansetron HCl (Zofran Odt) 4 mg PO Q6H PRN PRN Reason: Nausea/Vomiting Ondansetron HCl (Zofran) 4 mg IVP Q6H PRN PRN Reason: Nausea/Vomiting Phenol (Chloraseptic [place] 180 Ml Bot) 0 ml PO PRN PRN PRN Reason: Sore Throat Senna (Senokot) 2 tab PO HSPRN PRN PRN Reason: Constipation Sodium Chloride (Flush - Normal Saline) 10 ml IVF Q12HR [facility] Last Admin: 03/21/18 09:10 Dose: 10 ml Sodium Chloride (Flush - Normal Saline) 10 ml IVF PRN PRN PRN Reason: Saline Flush Last Admin: 03/14/18 22:38 Dose: 10 ml Sodium Chloride ([place] Nasal [place] 0.65%) 0 ml EA NARE QIDPRN PRN PRN Reason: Nasal Congestion Tamsulosin HCl (Flomax) 0.4 mg PO BID [facility] Last Admin: 03/21/18 09:07 Dose: 0.4 mg Temazepam (Restoril) 15 mg PO HSPRN PRN PRN Reason: Insomnia Thiamine HCl (Thiamine) 100 mg PO DAILY [facility] Last Admin: 03/21/18 09:09 Dose: 100 mg
[2018-03-21] MEDS: Enoxaparin Sodium 30 MG/0.3 ML SYRINGE SC SCH (10:24)
[2018-03-22 06:05] LABS: ALT (SGPT) 18 U/L (8-55); AST (SGOT) 24 U/L (5-34); Albumin 3.3 g/dL (3.4-4.8); Alkaline Phosphatase 62 U/L (40-150); Anion Gap 12 mmol/L (10-20); BUN (Urea Nitrogen) 15 mg/dL (8.4-25.7); Bilirubin, Total 0.4 mg/dL (0.2-1.2); Calc. Creatinine Clearance 73 mL/min (70-130); Calcium 9.1 mg/dL (7.8-10.44); Carbon Dioxide 24 mmol/L (23-31); Chloride 106 mmol/L (98-107); Estimated GFR-MDRD Greater than 90; Globulin 3.1 g/dL (2.4-3.5); Glucose 93 mg/dL (83-110); Magnesium 1.7 mg/dL (1.6-2.6); Potassium 3.7 mmol/L (3.5-5.1); Protein, Total 6.4 g/dL (5.8-8.1); Sodium 138 mmol/L (136-145)
[2018-03-22 06:56] LABS: #Eosinphils 0.3 thou/uL (0.0-0.7); #Lymphocytes 1.8 thou/uL (1.20-3.40); #Monocytes 0.7 thou/uL (0.11-0.59); %Basophils 0.4 % (0.0-1.0); %Eosinophils 5.2 % (0.0-10.0); %Lymphocytes 30.8 % (21.0-51.0); %Monocytes 11.2 % (0.0-10.0); %Neutrophils 52.3 % (42.0-75.0); Hemoglobin 13.6 g/dL (14.0-18.0); Mean Corpuscular HGB CONC 34.2 g/dL (32.0-36.0); Mean Corpuscular Hemoglobin 31.3 pg (27.0-31.0); Mean Corpuscular Volume 91.6 fL (78.0-98.0); Mean Platelet Volume 8.9 fL (7.4-10.4); Platelet Count 166 thou/uL (130-400); RBC Distribution Width 11.7 % (11.5-14.5); Red Blood Cell (RBC) Count 4.35 mill/uL (4.70-6.10); White Blood Cell (WBC) Count 5.8 thou/uL (4.8-10.8)
[2018-03-22] MEDS: Aspirin 325 MG TAB PO SCH (09:04)
[2018-03-22] MEDS: Amlodipine 10 MG TAB PO SCH (09:04)
[2018-03-22] MEDS: Labetalol 100 MG TAB PO SCH (09:04)
[2018-03-22] MEDS: Famotidine 20 MG TAB PO SCH (09:04)
[2018-03-22] MEDS: Cyanocobalamin (Vitamin B-12) 1,000 MCG TAB PO SCH (09:04)
[2018-03-22] MEDS: Folic Acid 1 MG TAB PO SCH (09:04)
[2018-03-22] MEDS: Magnesium Oxide 400 MG TAB PO SCH (09:04)
[2018-03-22] MEDS: Tamsulosin HCl 0.4 MG CAP PO SCH (09:04)
[2018-03-22] MEDS: hydrALAZINE 25 MG TAB PO SCH (09:05)
[2018-03-22] MEDS: Enoxaparin Sodium 30 MG/0.3 ML SYRINGE SC SCH (09:05)
--- NOTE | 2018-03-22 10:00 | PDOC.PN ---
- Subjective Encounter Start Date: 03/22/18 Encounter Start Time: 07:30 Patient seen and examined. No new complaints. pt required walker again for retention - Objective Resuscitation Status: Resuscitation Status FULL:Full Resuscitation MAR Reviewed: Yes Vital Signs & Weight: Vital Signs (12 hours) Temp Pulse Resp BP BP Pulse Ox 03/22/18 07:28 117/85 03/22/18 07:18 177/81 H 03/22/18 07:14 97.5 F L 82 12 117/81 95 03/22/18 04:00 97.7 F 78 16 165/77 H 165/77 H 94 L Weight Weight 147 lb I&O: 03/21/18 03/22/18 03/23/18 06:59 06:59 06:59 Intake Total 1804 1350 Output Total 4555 2550 Balance -2751 -1200 Result Diagrams: 03/22/18 05:07 03/22/18 05:41 EKG Reviewed by me: Yes (nsr) Phys Exam - Physical Examination Constitutional: NAD HEENT: PERRLA, moist MMs, sclera anicteric Neck: no JVD, supple Respiratory: no wheezing, no rales, no rhonchi Cardiovascular: RRR, no significant murmur, no rub Gastrointestinal: soft, non-tender, no distention, positive bowel sounds walker+ Musculoskeletal: no edema, pulses present Neurological: non-focal, normal sensation Lymphatic: no nodes Psychiatric: normal affect Skin: no rash, normal turgor Dx/Plan (1) Acute kidney failure Status: Acute (2) Acute urinary retention Code(s): R33.8 - OTHER RETENTION OF URINE Status: Acute (3) Hypertensive urgency Code(s): I16.0 - HYPERTENSIVE URGENCY Status: Acute Comment: (4) Alcohol abuse Code(s): F10.10 - ALCOHOL ABUSE, UNCOMPLICATED Status: Chronic (5) H/O cocaine abuse Code(s): Z87.898 - Status: Chronic (6) Nonadherence to medical treatment Code(s): Z91.19 - Status: Chronic (7) Acute metabolic encephalopathy Code(s): G93.41 - METABOLIC ENCEPHALOPATHY Status: Resolved Comment: (8) Hypokalemia Code(s): E87.6 - HYPOKALEMIA Status: Acute - Plan cont current plan of care, walker catheter, PT/OT, social worker delinquency prevention * medication reviewed as below * symptomatic treatment * dc with walker to snu * see discharge jigna. Review of Systems - Review of Systems ENT: negative: Ear Pain, Ear Discharge, Nose Pain, Nose Discharge, Nose Congestion, Mouth Pain, Mouth Swelling, Throat Pain, Throat Swelling, Other Respiratory: negative: Cough, Dry, Shortness of Breath, Hemoptysis, SOB with Excertion, Pleuritic Pain, Sputum, Wheezing Cardiovascular: negative: chest pain, palpitations, orthopnea, paroxysmal nocturnal dyspnea, edema, light headedness, other Gastrointestinal: negative: Nausea, Vomiting, Abdominal Pain, Diarrhea, Constipation, Melena, Hematochezia, Other Genitourinary: Retention. negative: Dysuria, Frequency, Incontinence, Hematuria , Other - Medications/Allergies Allergies/Adverse Reactions: Allergies Allergy/AdvReac Type Severity Reaction Status Date / Time No Known Allergies Allergy Verified 09/09/16 19:10 Medications: Current Medications Acetaminophen (Tylenol) 650 mg PO Q4H PRN PRN Reason: Headache/Fever or Pain Last Admin: 03/20/18 08:57 Dose: 650 mg Hydrocodone Bitart/Acetaminophen ([place] 5/325) 1 tab PO Q4H PRN PRN Reason: Moderate Pain (4-6) Hydrocodone Bitart/Acetaminophen ([place] 5/325) 2 tab PO Q4H PRN PRN Reason: Severe Pain (7-10) Amlodipine Besylate (Norvasc) 10 mg PO DAILY [facility] Last Admin: 03/22/18 09:04 Dose: 10 mg Artificial Tears (Tears Naturale) 0 drop EA EYE PRN PRN PRN Reason: Dry Eyes Aspirin (Aspirin) 325 mg PO DAILY [facility] Last Admin: 03/22/18 09:04 Dose: 325 mg Calcium Carbonate (Tums) 1,000 mg PO Q4H PRN PRN Reason: Heartburn or Indigestion Cyanocobalamin (Vitamin B-12) 1,000 mcg PO DAILY [facility] Last Admin: 03/22/18 09:04 Dose: 1,000 mcg Diazepam (Valium) 5 mg PO Q8H PRN PRN Reason: Anxiety/Agitation Last Admin: 03/17/18 22:53 Dose: 5 mg Enoxaparin Sodium (Lovenox) 30 mg SC 0900 [facility] Last Admin: 10/01/18 09:05 Dose: 30 mg Famotidine (Pepcid) 20 mg PO 0900 [facility] Last Admin: 03/22/18 09:04 Dose: 20 mg Folic Acid (Folvite) 1 mg PO DAILY [facility] Last Admin: 03/22/18 09:04 Dose: 1 mg Guaifenesin (Robitussin Sf) 200 mg PO Q4H PRN PRN Reason: Cough Hydralazine HCl (Apresoline) 25 mg PO BID [facility] Last Admin: 03/22/18 09:05 Dose: 25 mg Hydralazine HCl (Apresoline) 10 mg SLOW IVP Q6H PRN PRN Reason: SBP > 180 Last Admin: 03/16/18 00:49 Dose: 10 mg Labetalol HCl (Normodyne) 50 mg PO TID [facility] Last Admin: 03/22/18 09:04 Dose: 50 mg Loperamide HCl (Imodium) 2 mg PO PRN PRN PRN Reason: Diarrhea/Loose Stools Loratadine (Claritin) 10 mg PO DAILYPRN PRN PRN Reason: Sinus Symptoms Magnesium Hydroxide (Milk Of Magnesium) 30 ml PO DAILYPRN PRN PRN Reason: Constipation Magnesium Oxide (Magnesium Oxide) 400 mg PO DAILY [facility] Last Admin: 03/22/18 09:04 Dose: 400 mg Mineral Oil/White Petrolatum (Eucerin Cream) 0 gm TOP BIDPRN PRN PRN Reason: Dry Skin Ondansetron HCl (Zofran Odt) 4 mg PO Q6H PRN PRN Reason: Nausea/Vomiting Ondansetron HCl (Zofran) 4 mg IVP Q6H PRN PRN Reason: Nausea/Vomiting Phenol (Chloraseptic [place] 180 Ml Bot) 0 ml PO PRN PRN PRN Reason: Sore Throat Senna (Senokot) 2 tab PO HSPRN PRN PRN Reason: Constipation Sodium Chloride (Flush - Normal Saline) 10 ml IVF Q12HR [facility] Last Admin: 03/22/18 09:05 Dose: 10 ml Sodium Chloride (Flush - Normal Saline) 10 ml IVF PRN PRN PRN Reason: Saline Flush Last Admin: 03/14/18 22:38 Dose: 10 ml Sodium Chloride (Marshall Nasal [place] 0.65%) 0 ml EA NARE QIDPRN PRN PRN Reason: Nasal Congestion Tamsulosin HCl (Flomax) 0.4 mg PO BID [facility] Last Admin: 03/22/18 09:04 Dose: 0.4 mg Temazepam (Restoril) 15 mg PO HSPRN PRN PRN Reason: Insomnia Thiamine HCl (Thiamine) 100 mg PO DAILY [facility] Last Admin: 03/22/18 09:04 Dose: 100 mg
--- NOTE | 2018-03-22 11:23 | DIS ---
PRIMARY CARE PHYSICIAN: Catarina Díaz DATE OF ADMISSION: 03/15/2018 DATE OF DISCHARGE: 03/22/2018 DISCHARGE DISPOSITION: [facility] home. PRIMARY DISCHARGE DIAGNOSES: 1. Acute urinary retention requiring Burt catheter. 2. Acute postobstructive kidney failure, resolved. 3. Hypertensive urgency. 4. Alcohol withdrawal syndrome. 5. Hypokalemia. 6. Acute metabolic encephalopathy, resolved. SECONDARY DISCHARGE DIAGNOSES: Alcohol abuse, history of cocaine abuse, medication noncompliance, mo derate protein calorie malnutrition. PRIMARY PROCEDURE/OPERATION: None. RADIOLOGICAL INVESTIGATION: CT brain negative for any acute intracranial process. Renal ultrasound negative for any obstruction. SIGNIFICANT LABORATORY DATA: WBC 5.8, hemoglobin 13.6, platelet 166. Sodium 138, potassium 3.7, BUN 15, creatinine 0.86. LFT normal. Urinalysis unremarkable. DISCHARGE MEDICATIONS: Amlodipine 10 mg p.o. daily, aspirin 81 mg p.o. daily, vitamin B12 1000 mcg p .o. daily, diazepam 5 mg p.o. q.8 hours p.r.n., Pepcid 20 mg p.o. daily, folic acid 1 mg p.o. daily, hydralazine 25 mg p.o. b.i.d., labetalol 100 mg p.o. b.i.d., magnesium oxide 400 mg p.o. daily, Floma x 0.4 mg p.o. b.i.d., thiamine 100 mg p.o. daily. CONTRAINDICATIONS: None. CODE STATUS: FULL CODE. INPATIENT CONSULTANTS: Dr. Boyce was following while in hospital. TEST RESULTS PENDING ON DISCHARGE: None. ALLERGIES: No known drug allergy. DISCHARGE PLAN: Post hospital, the patient is discharged to [facility]. Dr. Caldwell will follow up with the patient. Subsequently the patient will need Urology followup with Dr. Watkins. HOSPITAL COURSE: A 72-year-old male with the above-mentioned medical problems who was admitted by Dr Lissa Salgado. Please see his H&P for further detail. The patient was admitted for altered mental s tatus. He had alcohol abuse and he was withdrawing from alcohol. He had hypertensive urgency on adm ission. This patient initially taken to [place] emergency room and subsequently he was transferred to [facility] and he was admitted by Dr. Salgado. The patient's metabolic encephalopathy was corrected with alcohol withdrawal syndrome treatment. His blood pressure was controlled with the above-mentioned medication. We provided patient counseling david bhatia in hospital to avoid alcohol and other illicit drug abuse. His abnormal electrolytes were corre cted while in hospital. He had postobstructive kidney failure from urinary retention and that is why he was requiring Burt catheter upon discharge. On time his creatinine increased to 5.92, but after catheter his creatinine improved to 0.86 by the time of discharge. We also tried to do a voiding tr ial while in hospital, but unsuccessful and that is why we decided to leave Burt catheter in. We st priscilla Flomax. The patient is overall medically stable for discharge. He has physical weakness and that is why he n eeds correction home placement. Paperwork for discharge done. Discharge medication reconciliat ion done. The patient is seen and examined at bedside today. Please see my progress note from today for furthe r details. Total time spent on discharge day 31 minutes.
[2018-03-22 11:30] VITALS: BP 132/69; TEMP 98.1
== END 2018-03-22 12:52 | DRG 70 ==
LOC: ERS 14:08 → 2NO 16:42 → OBSVTOIN 03-15 15:41 → 2NO 03-17 20:38
PROVIDERS: ADMIT Internal Medicine Infectious Disease; ATTEND Internal Medicine Infectious Disease
DX: G93.41 Metabolic encephalopathy (principal); N17.0 Acute kidney failure with tubular necrosis; F10.239 Alcohol dependence with withdrawal, unspecified; E44.0 Moderate protein-calorie malnutrition; E87.2 Acidosis; R33.9 Retention of urine, unspecified; I10 Essential (primary) hypertension; Y90.9 Presence of alcohol in blood, level not specified; E87.6 Hypokalemia; Z91.14 Patient's other noncompliance with medication regimen; Z68.20 Body mass index [BMI] 20.0-20.9, adult; I16.0 Hypertensive urgency; E78.5 Hyperlipidemia, unspecified; F14.10 Cocaine abuse, uncomplicated
CPT/HCPCS: 36415; 36416; 70450; 76770; 80048; 80053; 80076; 81001; 82550; 83735; 84100; 85025; 93005; 96365; A4216; G8978-GP-CL; G8979-GP-CJ; G8987-GO-CK; G8988-GO-CI; J0360; J1650; J3411; J3475; J7042; J7050

== ENCOUNTER 2018-03-26 20:17 | Inpatient (IN) | payer MEDICARE, MEDICAID ==
[2018-03-26 20:45] LABS: #Lymphocytes 0.4 thou/uL (1.20-3.40); #Monocytes 0.8 thou/uL (0.11-0.59); #Neutrophils 10.2 thou/uL (1.40-6.50); %Basophils 0.3 % (0.0-1.0); %Eosinophils 0.2 % (0.0-10.0); %Lymphocytes 3.6 % (21.0-51.0); %Monocytes 6.7 % (0.0-10.0); %Neutrophils 89.1 % (42.0-75.0); Hemoglobin 11.2 g/dL (14.0-18.0); Mean Corpuscular HGB CONC 34.3 g/dL (32.0-36.0); Mean Corpuscular Hemoglobin 31.5 pg (27.0-31.0); Mean Corpuscular Volume 92.1 fL (78.0-98.0); Mean Platelet Volume 7.5 fL (7.4-10.4); Platelet Count 287 thou/uL (130-400); RBC Distribution Width 11.7 % (11.5-14.5); Red Blood Cell (RBC) Count 3.54 mill/uL (4.70-6.10); White Blood Cell (WBC) Count 11.5 thou/uL (4.8-10.8)
[2018-03-26 21:06] LABS: ALT (SGPT) 15 U/L (8-55); AST (SGOT) 20 U/L (5-34); Albumin 3.7 g/dL (3.4-4.8); Alkaline Phosphatase 66 U/L (40-150); Anion Gap 13 mmol/L (10-20); BUN (Urea Nitrogen) 25 mg/dL (8.4-25.7); Bilirubin, Total 0.7 mg/dL (0.2-1.2); Calc. Creatinine Clearance 0 mL/min (70-130); Calcium 9.3 mg/dL (7.8-10.44); Carbon Dioxide 25 mmol/L (23-31); Chloride 105 mmol/L (98-107); Estimated GFR-MDRD 57; Globulin 3.3 g/dL (2.4-3.5); Glucose 103 mg/dL (83-110); Lipase 15 U/L (8-78); Potassium 4.3 mmol/L (3.5-5.1); Sodium 139 mmol/L (136-145)
--- NOTE | 2018-03-26 21:17 | RAD ---
PORTABLE UPRIGHT FRONTAL CHEST RADIOGRAPH 03/26/18 COMPARISON: 03/13/18 HISTORY: Pulled out Burt catheter, altered mental status, febrile. FINDINGS: No pneumothorax, pleural fluid, focal consolidation or alveolar edema. Heart and mediastinal contours appear within normal limits. There is degenerative change involving the right acromioclavicular join t. There is degenerative change involving the mid thoracic spine. IMPRESSION: No acute findings. POS: KHUSHBU
[2018-03-26] MEDS ORDERED: Acetaminophen 500 MG TAB ONE (21:23)
[2018-03-26 21:29] LABS: Bilirubin Moderate (Negative); Blood, Urine Large (Negative); Glucose, Urine (Dipstick) 250 mg/dL (Negative); Leukocyte Moderate (Negative); Nitrite Positive (Negative); Protein, Urine (Dipstick) > or equal to 300 mg/dL (Neg-Trace); pH, Urine 8.5 (5.0-9.0)
[2018-03-26 21:30] LABS: Clarity Turbid (Clear)
[2018-03-26 21:32] LABS: Bacteria/HPF 4+ HPF (None Seen); RBC/HPF GREATER THAN 50-TNTC HPF (0-3); Squamous Epithelial 0-3 HPF (0-3)
[2018-03-26 21:33] LABS: Hyaline Casts/LPF 4-6 HYALINE CAST LPF (0-3 Hyaline)
[2018-03-26] MEDS ORDERED: cefTRIAXone\\ROCEPHIN 2 GM VIAL ONE (22:12)
[2018-03-26] MEDS ORDERED: Acetaminophen 325 MG TAB PO PRN (22:40)
[2018-03-27 05:24] LABS: #Monocytes 0.8 thou/uL (0.11-0.59); #Neutrophils 8.5 thou/uL (1.40-6.50); %Basophils 0.4 % (0.0-1.0); %Eosinophils 0.4 % (0.0-10.0); %Lymphocytes 9.1 % (21.0-51.0); %Monocytes 7.8 % (0.0-10.0); %Neutrophils 82.3 % (42.0-75.0); Hemoglobin 10.1 g/dL (14.0-18.0); Mean Corpuscular HGB CONC 33.4 g/dL (32.0-36.0); Mean Corpuscular Hemoglobin 31.1 pg (27.0-31.0); Mean Corpuscular Volume 92.9 fL (78.0-98.0); Mean Platelet Volume 7.9 fL (7.4-10.4); Platelet Count 250 thou/uL (130-400); RBC Distribution Width 11.8 % (11.5-14.5); Red Blood Cell (RBC) Count 3.24 mill/uL (4.70-6.10); White Blood Cell (WBC) Count 10.3 thou/uL (4.8-10.8)
[2018-03-27 05:27] LABS: Albumin 3.2 g/dL (3.4-4.8); Anion Gap 12 mmol/L (10-20); BUN (Urea Nitrogen) 23 mg/dL (8.4-25.7); Calc. Creatinine Clearance 0 mL/min (70-130); Carbon Dioxide 25 mmol/L (23-31); Chloride 107 mmol/L (98-107); Estimated GFR-MDRD 80; Glucose 101 mg/dL (83-110); Phosphorus 3.5 mg/dL (2.3-4.7); Sodium 140 mmol/L (136-145)
--- NOTE | 2018-03-27 06:45 | HP ---
CHIEF COMPLAINT: The patient pulled Burt. HISTORIAN: Medical staff and electronic medical records. HISTORY OF PRESENT ILLNESS: Patient is a 72-year-old male with past medical history of dementia, hyp erlipidemia, hypertension, presenting with status post [facility] at 5:30 a.m. on the day of admission. Patient was transferred to our ED and Burt was reinserted. A fter reinsertion of Burt, the patient drained about 1 liter of blood-tinged urine and per EMS report , even though the patient has dementia, the patient is not at his baseline and the patient was febril e. REVIEW OF SYSTEMS: Unable to obtain review of systems since the patient is demented and also has alt eration of awareness. PAST MEDICAL HISTORY: Hyperlipidemia, hypertension, dementia. FAMILY HISTORY: Unable to be obtained. PAST SURGICAL HISTORY: Per electronic medical records, patient had cataract surgery in the left eye, lower back surgery. SOCIAL HISTORY: [facility] a [facility]. The patient is a former alcohol drinker. Issac nunez is also a former tobacco smoker. Patient smoked for about 30 years and used to smoke 1 pack per da y. ALLERGIES: No known drug allergies. CURRENT MEDICATIONS: Amlodipine, aspirin, B12, famotidine, folic acid, hydralazine, labetalol, magn esium oxide, thiamine, and diazepam. PHYSICAL EXAMINATION: VITAL SIGNS: Blood pressure is 185/89, pulse of 108, respiratory rate of 26, temperature of 103.1, O 2 saturation of 100. GENERAL: Patient is febrile at 103.1. Patient is tachycardic, hypertensive in 185/89. Patient is w inding in bed. HEENT: Normocephalic, atraumatic. Pupils are equally round and reactive to light. Extraocular move ments are intact. No scleral icterus. No conjunctival pallor. NECK: Trachea is midline. No JVD. Full range of motion. LUNGS: Clear to auscultation bilaterally. No wheezing, no rales, no rhonchi appreciated. CARDIOVASCULAR: Patient has sinus tachycardia. No murmurs appreciated. ABDOMEN: Patient has positive bowel sounds in all quadrants, nontender, and distended. No masses pa lpated. GENITOURINARY: Patient has a Burt in place and there appears to be some blood around the urethral m eatus and Burt is draining blood-tinged urine. EXTREMITIES: Upper and lower extremity: Patient has 5/5 upper extremity strength and 5/5 lower extr emity strength with good pulses at the upper and lower extremities bilaterally. NEUROLOGIC: Cranial nerves II through XII grossly intact. No neurologic deficits noted. SKIN: Warm, dry, and intact. PSYCHIATRIC: The patient is alert, oriented x0. EKG shows sinus tachycardia with a rate of 105. ED COURSE: The patient was given vancomycin IV, ceftriaxone, Tylenol. Chest x-ray that was ordered in the ED, showed no acute findings. LABORATORY DATA: WBC 11.5, hemoglobin is 11.2, hematocrit is 32.6, platelet count is 287,000. Sodiu m 139, potassium 4.3, chloride 105, carbon dioxide 25, anion gap of 13, BUN is 25, creatinine is 1.48 . Urinalysis positive for nitrite, positive for leukoesterase. ASSESSMENT AND PLAN: This is a 72-year-old male being admitted for; 1. Traumatic Burt removal. At this point, patient's Burt has been reinserted. We have consulted Urology. We will follow up with urology's recommendations. 2. Urinary tract infection. We will start the patient on Rocephin. We will follow up on cultures. We will continue current management. 3. Acute kidney injury likely due to obstructive uropathy. Patient's Burt had to be reinserted. W e will follow up on morning labs. We will follow up on renal function test. We will continue IV hyd ration. We will follow up with urology's recommendations. 4. History of dementia. We will monitor the patient closely. 5. Hypertension. We will monitor patient's blood pressure. We will give blood pressure medication as needed. 6. Hyperlipidemia. We will continue patient on current management. 7. Deep venous thrombosis and gastrointestinal prophylaxis.
[2018-03-27] MEDS: Famotidine/PF 20 mg/2ml Vial SLOW IVP SCH (08:21)
[2018-03-27] MEDS: Sodium Chloride 0.9% 1,000 ML IV SCH ×4 (08:21→20:25)
[2018-03-27] MEDS: Folic Acid 1 MG TAB PO SCH (08:26)
[2018-03-27] MEDS: Amlodipine 10 MG TAB PO SCH (08:26)
[2018-03-27] MEDS: hydrALAZINE 25 MG TAB PO SCH ×2 (08:26→20:17)
[2018-03-27] MEDS: Tamsulosin HCl 0.4 MG CAP PO SCH ×2 (08:26→20:25)
[2018-03-27] MEDS ORDERED: Famotidine/PF 20 mg/2ml Vial SLOW IVP SCH (09:00)
[2018-03-27] MEDS: Labetalol 100 MG TAB PO SCH ×2 (09:57→21:08)
[2018-03-27] MEDS: Finasteride 5 MG TAB PO SCH (13:15)
--- NOTE | 2018-03-27 15:48 | PDOC.PN ---
- Subjective Encounter Start Date: 03/27/18 Encounter Start Time: 13:30 -: old records requested/rev Pt seen and examined, chart reviewed in its entirety. Admitted for urinary retention, walker trauma, pt kofie savannah. dementia No F/Cm no N/V/D/C. urine still blood tinged, walker draining well. ROS not obtianable due to dementia - Objective Resuscitation Status: Resuscitation Status FULL:Full Resuscitation MAR Reviewed: Yes Vital Signs & Weight: Vital Signs (12 hours) Temp Pulse Resp BP BP Pulse Ox 03/27/18 12:00 97.6 F 95 20 117/68 95 03/27/18 09:57 95 154/70 H 03/27/18 08:26 95 154/70 H 03/27/18 08:00 97.6 F 95 18 154/70 H 95 03/27/18 04:00 98.4 F 81 18 167/76 H 94 L Weight Weight 149 lb 14.629 oz I&O: 03/26/18 03/27/18 03/28/18 06:59 06:59 06:59 Output Total 850 Balance -850 Result Diagrams: 03/27/18 04:11 03/27/18 04:11 Phys Exam - Physical Examination Constitutional: NAD HEENT: PERRLA, moist MMs, sclera anicteric, oral pharynx no lesions Neck: no nodes, no JVD, supple, full ROM Respiratory: no wheezing, no rales, no rhonchi, clear to auscultation bilateral Cardiovascular: RRR, no significant murmur, no rub Gastrointestinal: soft, non-tender, no distention, positive bowel sounds Musculoskeletal: edema present Neurological: moves all 4 limbs Lymphatic: no nodes Psychiatric: normal affect Skin: no rash, normal turgor, cap refill <2 seconds Dx/Plan - Plan cont current plan of care, social professionals * .
--- NOTE | 2018-03-27 18:25 | CON ---
DATE OF CONSULTATION: 03/27/2018. Consultation was requested for UTI and sepsis. HISTORY OF PRESENT ILLNESS: The patient is a 72-year-old male with dementia who lives in [place], who was recently admitted with renal failure secondary to bladder outlet obstruction and went out with a catheter. However, I do not see any evidence that Urology was consulted at that time. He returns a short time later after pulling out the catheter and having blood from the meatus. At which time, the catheter was replaced easily by the ER and been draining well since. He remained confused and tugging on the catheter, so he required restraints overnight, but this morning, he is appropriate. He is not oriented, but he is able to communicate and answer questions and denies any pain or prior concerns for inability to void. PAST MEDICAL HISTORY: Hypertension, high cholesterol, dementia, alcohol abuse. PAST SURGICAL HISTORY: Cataracts and back surgery. MEDICATIONS: Aspirin, B12, famotidine, folic acid, hydralazine, labetalol, magnesium, and thiamine, diazepam as needed. ALLERGIES: None. REVIEW OF SYSTEMS: He denies any pain other than that review of systems is difficult to obtain. SOCIAL HISTORY: Lives in detention and is a former alcoholic and with 30- pack-year history. I do not believe smoking currently. FAMILY HISTORY: He reports that both parents passed, but cannot give me much more information other than that. PHYSICAL EXAMINATION: VITAL SIGNS: He has been afebrile, mild hypertension at 152/70, heart rate 95, satting 95% on room air with respiratory rate of 18. He is comfortable in the bed. Appears slightly cachectic. He has a left-sided facial superficial skin elevation and poor dentition. NECK: He has no obvious JVD. CARDIOVASCULAR: His heart was regular rate and rhythm without obvious murmurs, gallops or rubs. LUNGS: Clear to auscultation bilaterally with minimal inspiratory effort. ABDOMEN: Soft, nondistended, nontender. GENITOURINARY: Testes were descended bilaterally without masses. Phallus was uncircumcised with the foreskin retracted so I reduced it. There was some hematuria around the catheter, and but in catheter was nice and yellow urine draining fine, which was secured in part to his thigh and I further secured down lower on his leg. His digital rectal exam revealed a smooth enlarged prostate without any nodules or concern for cancer. LABORATORY DATA: Reveal anemia. BUN and creatinine of 23 and 1.09. It is 1.48 on admission with his prior renal failure admission secondary to bladder outlet obstruction on 03/18/2018, creatinine was up to 5.92. Urinalysis from admission from yesterday shows too numerous to count wbc's, too numerous to count rbc's, 4+ bacteria and 0-3 squamous cells. Urinalysis from 03/19/2018, looked normal except mild white blood cells and a urinalysis from 03/13/2018, showed 2+ bacteria, but there is no culture associated with this. He had 4 other urines prior to that were all negative. A renal ultrasound from 03/18/2018 on his prior admission showed no hydronephrosis, stones or masses. Burt was in a decompressed bladder. ASSESSMENT AND PLAN: We have a 72-year-old male with dementia who pulled out his catheter and has urethral trauma with a prior recent admission for bladder outlet obstruction and renal failure, so a Burt catheter is required at this time, both trauma and renal function and must be secured at all times-- and possibly requiring restraints for this depending on the patient's demeanor. For now, I would continue Rocephin for his urinary tract infection and await culture. I will continue his tamsulosin b.i.d. and add finasteride daily, which will help decrease prostatic bleeding. I do not see a PSA on this gentleman, but I'm not significantly concerned for prostate cancer based on the previous imaging and normal digital rectal exam. I'd hold off on checking this at this time. Otherwise, continue antibiotics and indwelling catheter for now. SUZETTE
[2018-03-27] MEDS: cefTRIAXone\\ROCEPHIN 2 GM in Sodium Chloride 0.9% 100 ML IVPB SCH (20:24)
[2018-03-28] MEDS: Famotidine/PF 20 mg/2ml Vial SLOW IVP SCH (07:56)
[2018-03-28] MEDS: Folic Acid 1 MG TAB PO SCH (07:57)
[2018-03-28] MEDS: Finasteride 5 MG TAB PO SCH (07:57)
[2018-03-28] MEDS: Labetalol 100 MG TAB PO SCH ×2 (07:57→20:09)
[2018-03-28] MEDS: Amlodipine 10 MG TAB PO SCH (07:57)
[2018-03-28] MEDS: hydrALAZINE 25 MG TAB PO SCH ×2 (07:58→20:09)
[2018-03-28] MEDS: Tamsulosin HCl 0.4 MG CAP PO SCH ×2 (07:58→20:09)
[2018-03-28] MEDS: Sodium Chloride 0.9% 1,000 ML IV SCH (14:12)
--- NOTE | 2018-03-28 15:03 | PRG ---
DATE OF SERVICE: 03/28/2018 The patient did well overnight. There are no new events. He has no complaints and eating well. Vit als have been stable, satting 93% on room air. He has had close to 3 liters out of the catheter, whi ch is still secured and draining yellow urine. Urine culture shows presumptive Proteus and smaller a cordelia of a gram-negative bharati, which are still being reviewed for susceptibilities. In assessment, we have a 72-year-old male with dementia, who pulled out his catheter, who had been re cently admitted for his renal failure from bladder outlet obstruction, so clearly has to have the laura dder drained, and now with urethral trauma, has to have it in for at least 5-7 days before it would b e safe to take it out and start doing CIC. I asked his nurse if this could be determined whether the facility he came from would be able to do CIC for him or not, because this could be a long-term plan . Otherwise, there is no good long-term plan on the indwelling catheter for someone with confusion, other than to work towards surgery in the hopes that GreenLight laser vaporization of the prostate wo uld get him voiding, if maximum medical therapy fails. So, we will continue antibiotics for his urin e infection in both tamsulosin b.i.d. and finasteride.
--- NOTE | 2018-03-28 15:12 | PDOC.PN ---
- Subjective Encounter Start Date: 03/28/18 Encounter Start Time: 10:35 follow up for walker pulling with urethral trauma, dgross hematuria and acute UTI , catheter associated, present on admission No acute overnight events, pleasantly demented. NO F/C, no N/V/d/c, iris po Urology note reviewed All systems reviewed and neg x as above - Objective Resuscitation Status: Resuscitation Status FULL:Full Resuscitation MAR Reviewed: Yes Vital Signs & Weight: Vital Signs (12 hours) Temp Pulse Resp BP BP Pulse Ox 03/28/18 08:00 98.4 F 83 18 147/74 H 93 L 03/28/18 07:58 83 147/74 H 03/28/18 07:57 83 147/74 H Weight Weight 149 lb 14.629 oz I&O: 03/27/18 03/28/18 03/29/18 06:59 06:59 06:59 Intake Total 1100 Output Total 2900 Balance -1800 Result Diagrams: 03/27/18 04:11 03/27/18 04:11 Phys Exam - Physical Examination Constitutional: NAD HEENT: PERRLA, moist MMs, sclera anicteric, oral pharynx no lesions Neck: no nodes, no JVD, supple, full ROM Respiratory: no wheezing, no rales, no rhonchi, clear to auscultation bilateral Cardiovascular: RRR, no significant murmur Gastrointestinal: soft, non-tender, no distention, positive bowel sounds Musculoskeletal: no edema, pulses present Neurological: non-focal, normal sensation, moves all 4 limbs Lymphatic: no nodes Psychiatric: normal affect Skin: no rash, normal turgor, cap refill <2 seconds Dx/Plan (1) HTN (hypertension) Code(s): I10 - ESSENTIAL (PRIMARY) HYPERTENSION Status: Chronic Qualifiers: Hypertension type: essential hypertension Qualified Code(s): I10 - Essential (primary) hypertension (2) Walker catheter problem Code(s): T83.9XXA - UNSP COMPLICATION OF GENITOURINARY PROSTH DEV/GRFT, INIT Status: Acute Qualifiers: Encounter type: initial encounter Qualified Code(s): T83.9XXA - Unspecified complication of genitourinary prosthetic device, implant and graft, initial encounter (3) Walker catheter in place prior to arrival Code(s): ILH7476 - Status: Chronic (4) Catheter-associated urinary tract infection Code(s): T83.511A - I/I REACT D/T INDWELLING URETHRAL CATHETER, INIT; N39.0 - URINARY TRACT INFECTION, SITE NOT SPECIFIED Status: Acute Qualifiers: Indwelling urinary catheter type: indwelling urethral catheter Encounter type: initial encounter Qualified Code(s): T83.511A - Infection and inflammatory reaction due to indwelling urethral catheter, initial encounter; N39.0 - Urinary tract infection, site not specified (5) H/O cocaine abuse Code(s): Z87.898 - PERSONAL HISTORY OF OTHER SPECIFIED CONDITIONS Status: Chronic (6) Nonadherence to medical treatment Code(s): Z91.19 - PATIENT'S NONCOMPLIANCE W OTH MEDICAL TREATMENT AND REGIMEN Status: Chronic - Plan cont current plan of care, walker catheter, continue antibiotics, PT/OT, social media content manager * . urology to determine of he can go back alexsandra JEFFRIES can see if [facility] can manage walker per Dr Hurst recommendations
[2018-03-28] MEDS: cefTRIAXone\\ROCEPHIN 2 GM in Sodium Chloride 0.9% 100 ML IVPB SCH (20:06)
[2018-03-29] MEDS: Sodium Chloride 0.9% 1,000 ML IV SCH ×4 (01:48→20:42)
[2018-03-29] MEDS: Diazepam 5 MG TAB PO PRN ×2 (01:50→09:52)
[2018-03-29 05:31] LABS: #Eosinphils 0.2 thou/uL (0.0-0.7); #Monocytes 0.7 thou/uL (0.11-0.59); #Neutrophils 2.9 thou/uL (1.40-6.50); %Basophils 0.8 % (0.0-1.0); %Eosinophils 3.3 % (0.0-10.0); %Lymphocytes 20.4 % (21.0-51.0); %Neutrophils 61.5 % (42.0-75.0); Hemoglobin 9.8 g/dL (14.0-18.0); Mean Corpuscular HGB CONC 33.6 g/dL (32.0-36.0); Mean Corpuscular Hemoglobin 31.3 pg (27.0-31.0); Mean Corpuscular Volume 93.1 fL (78.0-98.0); Mean Platelet Volume 7.6 fL (7.4-10.4); Platelet Count 235 thou/uL (130-400); RBC Distribution Width 11.8 % (11.5-14.5); Red Blood Cell (RBC) Count 3.12 mill/uL (4.70-6.10); White Blood Cell (WBC) Count 4.7 thou/uL (4.8-10.8)
[2018-03-29 05:38] LABS: Anion Gap 10 mmol/L (10-20); BUN (Urea Nitrogen) 16 mg/dL (8.4-25.7); Calc. Creatinine Clearance 81 mL/min (70-130); Calcium 8.5 mg/dL (7.8-10.44); Carbon Dioxide 25 mmol/L (23-31); Chloride 108 mmol/L (98-107); Estimated GFR-MDRD Greater than 90; Glucose 129 mg/dL (83-110); Magnesium 1.7 mg/dL (1.6-2.6); Potassium 3.5 mmol/L (3.5-5.1); Sodium 139 mmol/L (136-145)
[2018-03-29] MEDS: Amlodipine 10 MG TAB PO SCH (08:10)
[2018-03-29] MEDS: Tamsulosin HCl 0.4 MG CAP PO SCH ×2 (08:10→20:43)
[2018-03-29] MEDS: Labetalol 100 MG TAB PO SCH ×2 (08:10→20:43)
[2018-03-29] MEDS: Famotidine/PF 20 mg/2ml Vial SLOW IVP SCH (08:10)
[2018-03-29] MEDS: hydrALAZINE 25 MG TAB PO SCH ×2 (08:10→20:43)
[2018-03-29] MEDS: Folic Acid 1 MG TAB PO SCH (08:10)
[2018-03-29] MEDS: Finasteride 5 MG TAB PO SCH (08:11)
[2018-03-29] MEDS: cefTRIAXone\\ROCEPHIN 2 GM in Sodium Chloride 0.9% 100 ML IVPB SCH (20:42)
--- NOTE | 2018-03-29 23:05 | PDOC.PN ---
- Subjective Encounter Start Date: 03/29/18 Encounter Start Time: 17:30 Patient seen and examined for UTI/walker trauma. No new complaints. No overnight events - Objective Resuscitation Status: Resuscitation Status FULL:Full Resuscitation MAR Reviewed: Yes Vital Signs & Weight: Vital Signs (12 hours) Temp Pulse Resp BP BP Pulse Ox 03/29/18 20:43 79 174/73 H 03/29/18 19:16 98.6 F 79 16 174/73 H 96 Weight Weight 149 lb 14.629 oz I&O: 03/28/18 03/29/18 03/30/18 06:59 06:59 06:59 Intake Total 1100 3200 Output Total 2900 2550 Balance -1800 650 Result Diagrams: 03/29/18 04:45 03/29/18 04:45 Phys Exam - Physical Examination Constitutional: NAD Cardiovascular: RRR, no rub Gastrointestinal: soft, non-tender, positive bowel sounds Musculoskeletal: no edema Neurological: moves all 4 limbs Dx/Plan - Plan DVT proph w/SCDs IMPRESSION: 1. Urethral trauma due to walker 2. Catheter associated UTI 3. Acute blood loss anemia 4. HTN/ GABBI/ Dementia/ h/o alcohol and cocaine abuse 5. Other issues per previous notes PLAN: Cont Ceftrizone Cont IVF Cont Amlodipine/Hydralazine Cont Flomax/Finasteride Microbiology 03/26/18 20:45 Urine walker catheter Urine Culture - Final Proteus mirabilis Gram Negative Christo 03/26/18 20:34 Venous blood - Right Arm Blood Culture - Preliminary NO GROWTH AT 48 HOURS 03/26/18 20:34 Venous blood - Left Arm Blood Culture - Preliminary NO GROWTH AT 48 HOURS Review of Systems - Medications/Allergies Allergies/Adverse Reactions: Allergies Allergy/AdvReac Type Severity Reaction Status Date / Time No Known Allergies Allergy Verified 03/27/18 01:38 Medications: Current Medications Acetaminophen (Tylenol) 650 mg PO Q4H PRN PRN Reason: Headache/Fever/Mild Pain (1-3) Amlodipine Besylate (Norvasc) 10 mg PO DAILY [facility] Last Admin: 03/29/18 08:10 Dose: 10 mg Diazepam (Valium) 5 mg PO Q8H PRN PRN Reason: Anxiety/Agitation Last Admin: 03/29/18 09:52 Dose: 5 mg Famotidine (Pepcid) 20 mg SLOW IVP QAM [facility] Last Admin: 03/29/18 08:10 Dose: 20 mg Finasteride (Proscar) 5 mg PO DAILY [facility] Last Admin: 03/29/18 08:11 Dose: 5 mg Folic Acid (Folvite) 1 mg PO DAILY [facility] Last Admin: 03/29/18 08:10 Dose: 1 mg Hydralazine HCl (Apresoline) 25 mg PO BID [facility] Last Admin: 03/29/18 20:43 Dose: 25 mg Sodium Chloride (Normal Saline 0.9%) 1,000 mls @ 100 mls/hr IV .Q10H [facility] Last Admin: 03/29/18 20:42 Dose: 1,000 mls Ceftriaxone Sodium 2 gm/ (Sodium Chloride) 100 mls @ 200 mls/hr IVPB Q24HR [facility] Last Admin: 03/29/18 20:42 Dose: 100 mls Labetalol HCl (Normodyne) 100 mg PO BID [facility] Last Admin: 03/29/18 20:43 Dose: 100 mg Miscellaneous Medication (Pharmacy To Dose) 1 each IVPB PRN PRN PRN Reason: Pharmacy to dose Sodium Chloride (Flush - Normal Saline) 10 ml IVF Q12HR PRN PRN Reason: Saline Flush Sodium Chloride (Flush - Normal Saline) 10 ml IVF PRN PRN PRN Reason: Saline Flush Tamsulosin HCl (Flomax) 0.4 mg PO BID [facility] Last Admin: 03/29/18 20:43 Dose: 0.4 mg Thiamine HCl (Thiamine) 100 mg PO DAILY [facility] Last Admin: 03/29/18 08:10 Dose: 100 mg
[2018-03-30] MEDS: Diazepam 5 MG TAB PO PRN ×2 (01:22→20:27)
[2018-03-30] MEDS: Sodium Chloride 0.9% 1,000 ML IV SCH ×3 (05:27→23:41)
[2018-03-30] MEDS: Labetalol 100 MG TAB PO SCH ×2 (08:16→20:27)
[2018-03-30] MEDS: Finasteride 5 MG TAB PO SCH (08:17)
[2018-03-30] MEDS: hydrALAZINE 25 MG TAB PO SCH ×2 (08:17→20:27)
[2018-03-30] MEDS: Amlodipine 10 MG TAB PO SCH (08:17)
[2018-03-30] MEDS: Folic Acid 1 MG TAB PO SCH (08:17)
[2018-03-30] MEDS: Tamsulosin HCl 0.4 MG CAP PO SCH ×2 (08:17→20:27)
[2018-03-30] MEDS: Famotidine/PF 20 mg/2ml Vial SLOW IVP SCH (08:17)
--- NOTE | 2018-03-30 12:43 | PRG ---
DATE OF SERVICE: 03/30/2018 The patient has done well, continuing to have the Burt draining and secured. He has no complaints. He has been afebrile. Vital signs are stable with excellent urine output. It is draining clear and secured still at the leg, but not farther down at the lower extremity. His laboratory values are nothing new from today. Yesterday, the creatinine went down to 0.79. Micr obiology shows Proteus with another gram-negative bharati, flow volume colony count. I reviewed the case with the admitting physician in hopes to best to allow the catheter to remain in during the urethral trauma healing time, but then ultimately remove it and resume CIC while continuin g tamsulosin and finasteride as an outpatient and Levaquin for his urine infection. If the nursing h ome can do CIC, then I would keep it until Thursday and start doing CIC thereafter; if they cannot, the n I would keep it in a month and see him for a voiding trial in the office. Either way, he can follo w up with me in the office as an outpatient.
[2018-03-30] MEDS: cefTRIAXone\\ROCEPHIN 2 GM in Sodium Chloride 0.9% 100 ML IVPB SCH (20:27)
--- NOTE | 2018-03-30 22:25 | PDOC.PN ---
- Subjective Encounter Start Date: 03/30/18 Encounter Start Time: 12:00 Patient seen and examined for UTI/urethral trauma. No new complaints. No overnight events - Objective Resuscitation Status: Resuscitation Status FULL:Full Resuscitation MAR Reviewed: Yes Vital Signs & Weight: Vital Signs (12 hours) Temp Pulse Resp BP BP Pulse Ox 03/30/18 20:27 68 165/70 H 03/30/18 20:00 93 L 03/30/18 19:16 98.2 F 68 16 165/70 H 93 L 03/30/18 15:27 98.2 F 71 16 159/73 H 96 03/30/18 11:23 97.9 F 75 18 146/74 H 92 L Weight Weight 149 lb 14.629 oz I&O: 03/29/18 03/30/18 03/31/18 06:59 06:59 06:59 Intake Total 3200 1900 Output Total 2550 1550 3125 Balance 227 -8228 -4448 Result Diagrams: 03/29/18 04:45 03/29/18 04:45 Phys Exam - Physical Examination Constitutional: NAD Respiratory: no wheezing, no rhonchi Cardiovascular: RRR, no rub Gastrointestinal: soft, non-tender, positive bowel sounds Walker + Musculoskeletal: no edema Dx/Plan - Plan DVT proph w/SCDs IMPRESSION: 1. Urethral trauma due to walker 2. Catheter associated UTI 3. Acute blood loss anemia 4. HTN/ GABBI/ Dementia/ h/o alcohol and cocaine abuse 5. Other issues per previous notes PLAN: Cont Atbx Cultures pending Cont IVF Cont current meds as below DC to NH in AM if stable Case d/w Urology Review of Systems - Review of Systems Respiratory: negative: Cough, Dry, Shortness of Breath, Hemoptysis, SOB with Excertion, Pleuritic Pain, Sputum, Wheezing Cardiovascular: negative: chest pain, palpitations, orthopnea, paroxysmal nocturnal dyspnea, edema, light headedness, other - Medications/Allergies Allergies/Adverse Reactions: Allergies Allergy/AdvReac Type Severity Reaction Status Date / Time No Known Allergies Allergy Verified 03/27/18 01:38 Medications: Current Medications Acetaminophen (Tylenol) 650 mg PO Q4H PRN PRN Reason: Headache/Fever/Mild Pain (1-3) Amlodipine Besylate (Norvasc) 10 mg PO DAILY [facility] Last Admin: 03/30/18 08:17 Dose: 10 mg Diazepam (Valium) 5 mg PO Q8H PRN PRN Reason: Anxiety/Agitation Last Admin: 03/30/18 20:27 Dose: 5 mg Famotidine (Pepcid) 20 mg SLOW IVP QAM [facility] Last Admin: 03/30/18 08:17 Dose: 20 mg Finasteride (Proscar) 5 mg PO DAILY [facility] Last Admin: 03/30/18 08:17 Dose: 5 mg Folic Acid (Folvite) 1 mg PO DAILY [facility] Last Admin: 03/30/18 08:17 Dose: 1 mg Hydralazine HCl (Apresoline) 25 mg PO BID [facility] Last Admin: 03/30/18 20:27 Dose: 25 mg Sodium Chloride (Normal Saline 0.9%) 1,000 mls @ 100 mls/hr IV .Q10H [facility] Last Admin: 03/30/18 11:19 Dose: 1,000 mls Ceftriaxone Sodium 2 gm/ (Sodium Chloride) 100 mls @ 200 mls/hr IVPB Q24HR [facility] Last Admin: 03/30/18 20:27 Dose: 100 mls Labetalol HCl (Normodyne) 100 mg PO BID [facility] Last Admin: 03/30/18 20:27 Dose: 100 mg Miscellaneous Medication (Pharmacy To Dose) 1 each IVPB PRN PRN PRN Reason: Pharmacy to dose Sodium Chloride (Flush - Normal Saline) 10 ml IVF Q12HR PRN PRN Reason: Saline Flush Sodium Chloride (Flush - Normal Saline) 10 ml IVF PRN PRN PRN Reason: Saline Flush Tamsulosin HCl (Flomax) 0.4 mg PO BID [facility] Last Admin: 03/30/18 20:27 Dose: 0.4 mg Thiamine HCl (Thiamine) 100 mg PO DAILY [facility] Last Admin: 03/30/18 08:17 Dose: 100 mg
[2018-03-31] MEDS: Famotidine/PF 20 mg/2ml Vial SLOW IVP SCH (08:38)
[2018-03-31] MEDS: Finasteride 5 MG TAB PO SCH (08:39)
[2018-03-31] MEDS: Labetalol 100 MG TAB PO SCH ×2 (08:39→21:31)
[2018-03-31] MEDS: hydrALAZINE 25 MG TAB PO SCH ×2 (08:39→21:31)
[2018-03-31] MEDS: Amlodipine 10 MG TAB PO SCH (08:40)
[2018-03-31] MEDS: Folic Acid 1 MG TAB PO SCH (08:40)
[2018-03-31] MEDS: Sodium Chloride 0.9% 1,000 ML IV SCH ×2 (08:40→17:31)
[2018-03-31] MEDS: Tamsulosin HCl 0.4 MG CAP PO SCH ×2 (08:40→21:31)
--- NOTE | 2018-03-31 12:43 | PQF ---
CLINICAL DOCUMENTATION IMPROVEMENT CLARIFICATION FORM: ICD-10 Updated PLEASE DO AN ADDENDUM TO THE PROGRESS NOTE WITH ANY DOCUMENTATION UPDATES OR ADDITIONS AND CARRY THROUGH TO DC SUMMARY. THANK YOU. DATE: 03/31/18 ATTN: Dr. Navarrete Please exercise your independent, professional judgment in responding to the clarification form. Clinical indicators are provided on the bottom of this form for your review Please check appropriate box(es): [ ] Sepsis due to UTI due to indwelling urethral catheter. [ ] Sepsis due to: [ ] Severe sepsis with acute organ dysfunction of: (encephalopathy, acute kidney failure, other) [ ] Localized infection without sepsis [ ] Other diagnosis [ ] Unable to determine In addition, please specify: Present on Admission (POA): [ ] Yes [ ] No [ ] Unable to determine For continuity of documentation, please document condition throughout progress notes and discharge summary. Thank You. CLINICAL INDICATORS - SIGNS / SYMPTOMS / LABS ER RECORD: UTI SEPSIS H&P 03/26: BP 185/89 PULSE 108 RESP 26 TEMP 103.1 URINALYSIS POSITIVE FOR NITRITE, POSITIVE FOR LEUKOESTERASE UROLOGY CONSULT 03/27: REQUESTED FOR UTI AND SEPSIS PN 03/30: URETHRAL TRAUMA DUE TO GIBBS CATHETER ASSOCIATED UTI GABBI RISKS: H&P: TRAUMATIC GIBBS REMOVAL; UTI; GABBI D/T OBSTRUCTIVE UROPATHY. HX DEMENTIA. HTN TREATMENT: ORDER 03/26: BLOOD AND URINE CULTURE ORDER 03/26: IV ROCEPHIN 2GM Q 24 HR Thank you, Leyla (This form is maintained as a part of the permanent medical record) 2014 [employer]. All Rights Reserved Leyla Perry RN, BSN [email or web address] Office: [phone] [facility]
[2018-03-31] MEDS: Diazepam 5 MG TAB PO PRN (21:31)
[2018-03-31] MEDS: cefTRIAXone\\ROCEPHIN 2 GM in Sodium Chloride 0.9% 100 ML IVPB SCH (21:31)
--- NOTE | 2018-03-31 23:37 | PDOC.PN ---
- Subjective Encounter Start Date: 03/31/18 Encounter Start Time: 11:00 Patient seen and examined for UTI. No new complaints. No overnight events - Objective Resuscitation Status: Resuscitation Status FULL:Full Resuscitation MAR Reviewed: Yes Vital Signs & Weight: Vital Signs (12 hours) Temp Pulse Resp BP BP BP Pulse Ox 03/31/18 21:31 73 160/73 H 03/31/18 20:00 97.7 F 73 20 160/72 H 96 03/31/18 19:25 95 03/31/18 16:04 98.2 F 69 16 146/74 H 95 03/31/18 12:03 97.9 F 67 14 137/69 95 Weight Weight 149 lb 14.629 oz I&O: 03/30/18 03/31/18 04/01/18 06:59 06:59 06:59 Intake Total 1900 1365 Output Total 1550 1138 1921 Balance -1869 -2836 -0038 Result Diagrams: 03/29/18 04:45 03/29/18 04:45 Additional Labs: Microbiology 03/26/18 20:45 Urine walker catheter Urine Culture - Final Proteus mirabilis Gram Negative Christo 03/26/18 20:34 Venous blood - Left Arm Blood Culture - Final NO GROWTH IN 5 DAYS 03/26/18 20:34 Venous blood - Right Arm Blood Culture - Preliminary Proteus species Phys Exam - Physical Examination Constitutional: NAD Respiratory: no wheezing, no rhonchi Cardiovascular: RRR, no rub Gastrointestinal: soft, non-tender, positive bowel sounds Musculoskeletal: no edema Neurological: moves all 4 limbs Dx/Plan - Plan DVT proph w/SCDs IMPRESSION: 1. Urethral trauma due to walker 2. Sepsis due to Catheter associated UTI (present on admission) 3. Acute blood loss anemia 4. HTN/ GABBI/ Dementia/ h/o alcohol and cocaine abuse 5. Other issues per previous notes PLAN: Cont Ceftriaxone Await blood c/s Cont IVF - reduce rate to 50 ml/hr Cont current meds as below DC to NH in AM after blood c/s report Review of Systems - Review of Systems Respiratory: negative: Cough, Dry, Shortness of Breath, Hemoptysis, SOB with Excertion, Pleuritic Pain, Sputum, Wheezing Cardiovascular: negative: chest pain, palpitations, orthopnea, paroxysmal nocturnal dyspnea, edema, light headedness, other - Medications/Allergies Allergies/Adverse Reactions: Allergies Allergy/AdvReac Type Severity Reaction Status Date / Time No Known Allergies Allergy Verified 03/27/18 01:38 Medications: Current Medications Acetaminophen (Tylenol) 650 mg PO Q4H PRN PRN Reason: Headache/Fever/Mild Pain (1-3) Amlodipine Besylate (Norvasc) 10 mg PO DAILY [facility] Last Admin: 03/31/18 08:40 Dose: 10 mg Diazepam (Valium) 5 mg PO Q8H PRN PRN Reason: Anxiety/Agitation Last Admin: 03/31/18 21:31 Dose: 5 mg Famotidine (Pepcid) 20 mg PO QAM [facility] Finasteride (Proscar) 5 mg PO DAILY [facility] Last Admin: 03/31/18 08:39 Dose: 5 mg Folic Acid (Folvite) 1 mg PO DAILY [facility] Last Admin: 03/31/18 08:40 Dose: 1 mg Hydralazine HCl (Apresoline) 25 mg PO BID [facility] Last Admin: 03/31/18 21:31 Dose: 25 mg Sodium Chloride (Normal Saline 0.9%) 1,000 mls @ 100 mls/hr IV .Q10H [facility] Last Admin: 03/31/18 17:31 Dose: 1,000 mls Ceftriaxone Sodium 2 gm/ (Sodium Chloride) 100 mls @ 200 mls/hr IVPB Q24HR [facility] Last Admin: 03/31/18 21:31 Dose: 100 mls Labetalol HCl (Normodyne) 100 mg PO BID [facility] Last Admin: 03/31/18 21:31 Dose: 100 mg Miscellaneous Medication (Pharmacy To Dose) 1 each IVPB PRN PRN PRN Reason: Pharmacy to dose Sodium Chloride (Flush - Normal Saline) 10 ml IVF Q12HR PRN PRN Reason: Saline Flush Sodium Chloride (Flush - Normal Saline) 10 ml IVF PRN PRN PRN Reason: Saline Flush Tamsulosin HCl (Flomax) 0.4 mg PO BID [facility] Last Admin: 03/31/18 21:31 Dose: 0.4 mg Thiamine HCl (Thiamine) 100 mg PO DAILY [facility] Last Admin: 03/31/18 08:39 Dose: 100 mg
[2018-04-01] MEDS ORDERED: Sodium Chloride 0.9% 1,000 ML IV SCH (00:53)
[2018-04-01] MEDS: Sodium Chloride 0.9% 1,000 ML IV SCH (02:32)
[2018-04-01] MEDS: Amlodipine 10 MG TAB PO SCH (08:03)
[2018-04-01] MEDS: Finasteride 5 MG TAB PO SCH (08:04)
[2018-04-01] MEDS: Folic Acid 1 MG TAB PO SCH (08:04)
[2018-04-01] MEDS: hydrALAZINE 25 MG TAB PO SCH (08:04)
[2018-04-01] MEDS: Labetalol 100 MG TAB PO SCH (08:04)
[2018-04-01] MEDS: Tamsulosin HCl 0.4 MG CAP PO SCH (08:04)
[2018-04-01] MEDS ORDERED: Famotidine 20 MG TAB PO SCH (09:00)
[2018-04-01 15:40] VITALS: BP 160/75; TEMP 97.6
--- NOTE | 2018-04-01 17:53 | DIS ---
DATE OF DISCHARGE: 04/01/2018 DISCHARGE DISPOSITION: Magnified [facility]pc. ALLERGIES: No known drug allergies. DISCHARGE MEDICATIONS: 1. Proscar 5 mg daily. 2. Flomax 0.4 mg b.i.d. 3. Levofloxacin 500 mg daily for 10 more days. 4. All other home medications were resumed including aspirin. BRIEF HOSPITAL COURSE: Patient is a 72-year-old male with benign prostatic hypertrophy, hypertension and dementia who presented to the emergency room with urethral trauma secondary to patient pulling a Burt catheter. Please refer to the history and physical for further details. The patient was admitted to the medical floor with a diagnosis of traumatic Burt removal. Patient w as seen by Urology. Burt catheter was reinserted. He had some gross hematuria that later cleared u p. He was also found to have Proteus bacteremia and Proteus UTI. IV antibiotics have been changed t o oral Levaquin. The patient has been cleared by Urology for discharge. He also had acute kidney in jury that has resolved. FINAL DIAGNOSES: 1. Urethral trauma due to Burt catheter. 2. Sepsis secondary to catheter associated urinary tract infection. 3. Proteus bacteremia. 4. Acute blood loss anemia. 5. Gross hematuria, resolved. 6. Hypertension. 7. Acute kidney injury. 8. Dementia. 9. History of alcohol and cocaine abuse. 10. Hyperlipidemia Plan of care was discussed with the patient in detail. He stated understanding. Total time coordinating the discharge of this patient was 33 minutes. The patient was seen and examined on the day of discharge.
== END 2018-04-01 17:02 | DRG 698 ==
LOC: ERS 20:17 → T4-A 23:33
PROVIDERS: ADMIT Internal Medicine; ATTEND Internal Medicine
DX: T83.511A Infection and inflammatory reaction due to indwelling urethral catheter, initial encounter (principal); A41.9 Sepsis, unspecified organism; D62 Acute posthemorrhagic anemia; N17.9 Acute kidney failure, unspecified; S37.39XA Other injury of urethra, initial encounter; T83.89XA Other specified complication of genitourinary prosthetic devices, implants and grafts, initial encounter; B96.4 Proteus (mirabilis) (morganii) as the cause of diseases classified elsewhere; R31.0 Gross hematuria; I10 Essential (primary) hypertension; F03.90 Unspecified dementia, unspecified severity, without behavioral disturbance, psychotic disturbance, mood disturbance, and anxiety; E78.5 Hyperlipidemia, unspecified; Z79.82 Long term (current) use of aspirin; N32.0 Bladder-neck obstruction
CPT/HCPCS: 36415; 51702; 71045; 80048; 80053; 80069; 81003; 81015; 83605; 83690; 83735; 85025; 87040; 87077; 87086; 87149; 87186; 90471; 90662; 90732; 93005; 96365; 96375; G0008; G0009; J0696; J3370; J7050; S0028

== ENCOUNTER 2018-08-18 00:21 | Outpatient (CLI) | payer MEDICARE, MEDICAID ==
[2018-08-18 10:36] LABS: Hemoglobin 12.3 g/dL (14.0-18.0); Mean Corpuscular HGB CONC 32.6 g/dL (32.0-36.0); Mean Corpuscular Hemoglobin 30.2 pg (27.0-31.0); Mean Corpuscular Volume 92.6 fL (78.0-98.0); Mean Platelet Volume 7.4 fL (7.4-10.4); Platelet Count 212 thou/uL (130-400); RBC Distribution Width 11.9 % (11.5-14.5); Red Blood Cell (RBC) Count 4.07 mill/uL (4.70-6.10); White Blood Cell (WBC) Count 4.3 thou/uL (4.8-10.8)
[2018-08-18 11:01] LABS: Anion Gap 10 mmol/L (10-20); BUN (Urea Nitrogen) 21 mg/dL (8.4-25.7); Calc. Creatinine Clearance 0 mL/min (70-130); Calcium 9.2 mg/dL (7.8-10.44); Carbon Dioxide 27 mmol/L (23-31); Chloride 107 mmol/L (98-107); Estimated GFR-MDRD 73; Glucose 134 mg/dL (83-110); Potassium 4.1 mmol/L (3.5-5.1); Sodium 140 mmol/L (136-145)
== END 2018-08-18 00:22 | disposition home or self-care (01) ==
LOC: LABBT 00:21
PROVIDERS: ATTEND Urology
DX: R31.0 Gross hematuria (principal); N40.0 Benign prostatic hyperplasia without lower urinary tract symptoms; N17.9 Acute kidney failure, unspecified; R32 Unspecified urinary incontinence; R39.14 Feeling of incomplete bladder emptying; R33.9 Retention of urine, unspecified
CPT/HCPCS: 80048; 81001; 85027; 87077; 87086; 87186

== ENCOUNTER → 2018-08-24 | Day surgery (SDC) | payer MEDICAID, MEDICARE ==
[2018-08-18 14:49] VITALS: BMI 22.8
[~2018-08-24] MED LIST: B & O ONE; Bacitracin Zinc Ointment 30 gm TUBE ONE; Bupivacaine 0.25% HCL 30 ML VIAL ONE; Dexamethasone 4 mg/ml Vial ONE; Fentanyl 100 MCG/2 ML VIAL ONE; Furosemide 20 MG/2 ML VIAL ONE; Glycopyrrolate 0.2 MG/ML 5 ML SYRINGE ONE; Lidocaine 1% PF 5 ML VIAL ONE; Ondansetron PF 4 MG/2 ML Vial ONE; PHENYLEPHRINE-NS 100 MCG/ML 10 ML SYRINGE ONE; PROPOFOL 200 MG/20 ML VIAL ONE; Rocuronium Bromide 10 MG/ML (10ML VIAL) ONE; cefTRIAXone\\ROCEPHIN 1 GM in Sodium Chloride 0.9% 100 ML IVPB SCH; ePHEDrine 50 MG/ML VIAL ONE
--- NOTE | 2018-08-25 08:15 | OP ---
DATE OF PROCEDURE: 08/24/2018 PREOPERATIVE DIAGNOSES: Benign prostatic hypertrophy, prior retention, urinary tract infections. POSTOPERATIVE DIAGNOSES: Benign prostatic hypertrophy, prior retention, urinary tract infections. PROCEDURE PERFORMED: GreenLight laser vaporization of the prostate with enucleation of the middle lobe using [phone] joules as well as circumcision. ANESTHESIA: General with endotracheal tube as well as penile block using 10 mL of Marcaine. COMPLICATIONS: None. DRAIN REMAINING: A 20-[place]ine[place] two-way. SPECIMENS: Prostate, the foreskin was not sent. ESTIMATED BLOOD LOSS: Minimal. INDICATIONS FOR PROCEDURE: The patient is a 72-year-old male who was initially seen in the hospital after retention and Burt trauma and subsequent urinary tract infections, and he ultimately was set up for GreenLight laser vaporization of the prostate, although he was successfully voiding without a catheter prior to surgery given the infections. He was also consented for circumcision. DESCRIPTION OF PROCEDURE: The patient was brought into the room by Anesthesia, laid on the table in supine position. After receiving general anesthetic, his legs were placed in lithotomy position. His perineum was prepped and draped in sterile fashion. Using a 22.5-[place]ine[place] cystoscope and 30-degree lens, the urethra was traversed and the bladder was inspected. The ureteral orifices were little bit difficult to see, but ultimately identified and certainly preserved throughout the case. A power level of 80 was used while I was working on the intravesical middle lobe and this was enucleated in portions that were small enough to be extracted, however, that did require using an Ellik and a grasper for some of the larger fragments. Once the middle lobe was enucleated and I was safely outside of the bladder and back into the prostatic urethra, I used a power level of 180 to take the urethra opening all the way down to the veru. A power level of 80 was used near the veru as well. When the scope was removed, good stream was noticed. The scope was put back in. Bladder decompressed. Hemostasis ensured. A power level of 80 was used to obtain any concerning areas and at this point, the scope was removed and a 20-[place]ine[place] two-way was placed to gravity and plugged and then he was repositioned supine and prepped and draped in sterile fashion. A 10 mL of Marcaine was used for penile block, starting at the dorsal portion of the shaft and then a small portion at the ventral portion to ensure the frenulum was adequately anesthetized. Then, two circumferential incisions were made, one with the foreskin reduced to the level of the weathers. The other with foreskin retracted approximately 5 mm proximal to the level of weathers. The excess skin was sharply excised. Hemostasis was ensured with electrocautery. The skin edges were then reapproximated with 3-0 and 4-0 chromic in interrupted fashion. Bacitracin and sterile dressing were applied as well as Coban for compression. At this point, the catheter was unplugged and ensured to be draining properly with light pink to clear urine and sent to gravity. The patient tolerated the procedure well and was then awakened and transferred to the PACU in stable condition. Job ID: [id number]
== END ==
LOC: SDC 05:59
PROVIDERS: ATTEND Urology
PROC: 0VT08ZZ Resection of Prostate, Via Natural or Artificial Opening Endoscopic (ICD-10-PCS; principal; 2018-08-24)
PROC: 0VTTXZZ Resection of Prepuce, External Approach (ICD-10-PCS; 2018-08-24)
DX: N40.1 Benign prostatic hyperplasia with lower urinary tract symptoms (principal); R33.8 Other retention of urine; N41.1 Chronic prostatitis; N39.0 Urinary tract infection, site not specified; E78.5 Hyperlipidemia, unspecified; F32.9 Major depressive disorder, single episode, unspecified; I10 Essential (primary) hypertension; Z79.82 Long term (current) use of aspirin; Z79.899 Other long term (current) drug therapy
CPT/HCPCS: 88305; J0696; J1100; J1940; J2001; J2405; J2704; J3010; J3490; J7050; S0020